=== PATIENT | male | born 1950 | race Caucasian/White ===

== ENCOUNTER → 2018-01-31 16:14 | Outpatient (CLI) | payer MEDICARE, OTHER, SELFPAY ==
--- NOTE | 2018-01-31 16:16 | DI.US.S_ITS ---
PROCEDURE: US SCROTUM INDICATIONS: Swollen L testicle x 2 weeks TECHNIQUE: Real-time scanning was performed of the scrotum and testicles, with image documentation. Color and pulse Doppler interrogation was performed of both testicles. COMPARISON: None. FINDINGS: Right: Testicle is normal in size at 4.3 x 2.6 x 3.0 cm, and homogenous in echotexture. Epididymis is normal in overall size and morphology. 1.1 cm epididymal cyst. Small hydrocele.. Overlying scrotal skin is normal in thickness. Left: Testicle is normal in size at 5.6 x 3.2 x 3.4 cm, and homogeneous in echotexture. 4 mm tunica albuginea cyst noted. Epididymis is not well-seen.. Large hydrocele. Overlying scrotal skin is normal in thickness. Doppler: Color and pulse Doppler demonstrate normal and symmetric arterial flow in both testicles. IMPRESSION: 1. Left tunica albuginea cyst noted otherwise normal testicles. 2. Large left and small right hydroceles. 3. Small right epididymal cyst. Dictated by: George REDDING Interpreted: Shant King MD on 02/01/2018 at 8:50 Approved by: Gee King M.D. on 02/01/2018 at 16:37
== END ==
PROVIDERS: Family Provider Family Medicine; PCP Family Medicine; Visit Provider Family Medicine
DX: N43.3 Hydrocele, unspecified (principal); N50.3 Cyst of epididymis; N44.1 Cyst of tunica albuginea testis; N50.89 Other specified disorders of the male genital organs
CPT/HCPCS: 76870

== ENCOUNTER → 2018-02-21 10:48 | Outpatient (CLI) | payer MEDICARE, OTHER, SELFPAY | PROVIDERS: Family Provider Family Medicine; PCP Family Medicine; Visit Provider Internal Medicine | DX: M21.371 Foot drop, right foot (principal); R20.0 Anesthesia of skin | CPT/HCPCS: 95886; 95912 ==

== ENCOUNTER → 2018-02-28 07:24 | Outpatient (CLI) | payer MEDICARE, OTHER, SELFPAY ==
--- NOTE | 2018-02-28 07:26 | DI.MRI.S_ITS ---
PROCEDURE: MR LUMBAR SPINE WO CON INDICATIONS: Right hip, buttock and leg radicular pain with abnormal NCS/EMG post lifting injury TECHNIQUE: Noncontrast sagittal T1 spin echo and T2 fast echo, sagittal STIR, axial T1 and T2 fast spin echo through the lumbar spine. In cases with scoliosis, additional coronal T2 fast spin echo may be performed. COMPARISON: [facility], RG, XR L-SPINE 4-6V, 05/26/2005, 12:07. FINDINGS: Image quality: There are motion artifacts. Alignment and Curvature: There is grade 1 anterolisthesis of L5 over S1. Bone Marrow: Marrow is of normal overall signal. No acute vertebral body compression fractures. Spinal Cord: Conus medullaris terminates at the L1-L2 level. Visualized cord demonstrates normal signal and size. Paraspinous Soft Tissues: No paravertebral masses. L1-L2: Preserved disc height. Mild disc desiccation. There is mild posterior disc bulge. Mild bilateral facet arthropathy. The central canal is patent. No foraminal stenosis. L2-L3: Preserved disc height. Mild disc desiccation. There is broad posterior disc bulge. Mild bilateral facet arthropathy and hypertrophy of ligamentum flavum. The central canal is patent. No bilateral foraminal stenosis. L3-L4: Mild loss of disc height and moderate disc desiccation. There is broad posterior disc bulge. There is right posterior paramedian disc extrusion with an extruding disc fragment extending below the disc within the anterior spinal canal measuring 5 mm AP x 10 mm transverse x 19 mm cephalocaudal. The right lateral recess is severely narrowed. There is impingement of the right L4 nerve root. Mild bilateral facet arthropathy and hypertrophy of ligamentum flavum. The central canal is zxzetgzz-cd-jytovshf narrowed. Ggmo-ju-simgmffs subarticular foraminal stenosis bilaterally. L4-L5: Mild loss of disc height and moderate disc desiccation. There is diffuse posterior disc bulge and disc osteophyte complex. Superimposed posterior central annular tear is present. Severe bilateral facet arthropathy and moderate hypertrophy of ligamentum flavum. The central canal is fluwqgjv-xy-yasqmlrq narrowed. Moderate foraminal stenosis bilaterally. L5-S1: Preserved disc height. Moderate disc desiccation. There is diffuse posterior disc bulge and disc protrusion. Severe bilateral facet arthropathy. The central canal is mildly narrowed. Mild bilateral foraminal stenosis bilaterally. IMPRESSION: 1. Multilevel degenerative disc disease and facet arthropathy as described. 2. There is a right posterior paramedian extruding disc fragment at L3-L4, extending inferiorly occupying the anterior spinal canal causing severe narrowing of the right lateral recess and nerve root impingement. 3. Moderate to severe central canal stenosis at L3-L4 and L4-L5. 4. Multilevel foraminal stenoses as described. Dictated by: Chris Araujo M.D. on 02/28/2018 at 9:43 Transcribed by: SHIVA on 02/28/2018 at 9:58 Approved by: Chris Araujo M.D. on 02/28/2018 at 17:45
== END ==
PROVIDERS: Family Provider Family Medicine; PCP Family Medicine; Visit Provider Internal Medicine
DX: M51.16 Intervertebral disc disorders with radiculopathy, lumbar region (principal); M25.551 Pain in right hip; M48.061 Spinal stenosis, lumbar region without neurogenic claudication; M54.5 Low back pain; M21.371 Foot drop, right foot; R20.0 Anesthesia of skin
CPT/HCPCS: 72148

== ENCOUNTER → 2018-06-20 09:57 | Outpatient (CLI) | payer MEDICARE, OTHER, SELFPAY ==
[2018-06-20 10:41] LABS: Mean Corpuscular HGB Conc 33.4 % (30-36); Mean Corpuscular Hemoglobin 27.4 PG (26-34); Mean Corpuscular Volume 81.9 fL (80-100); Platelet Count 200 X10^3/uL (150-400); Red Blood Cell Count 5.12 X10^6/uL (4.5-5.9); Red Cell Distribution Width 15.2 % (11.6-14.8); White Blood Cell Count 6.1 X10^3/uL (4.5-11.0)
[2018-06-20 10:50] LABS: Hemoglobin A1C% w Est Avg Glu 6.8 % (4.0-6.0)
[2018-06-20 11:10] LABS: Neutrophils Absolute Manual 3416 /uL (3000-5900); Total Cells Counted 100
[2018-06-20 11:11] LABS: RBC Morphology Normal Morphology
[2018-06-20 11:33] LABS: Thyroid Stimulating Hormone 3.64 uIU/mL (0.47-4.68)
[2018-06-20 11:48] LABS: Creatinine Urine Random 92.2 mg/dL
[2018-06-20 11:53] LABS: Microalbumi Creatinin Ratio Ur 21.6 ug/mg CR (<30)
[2018-06-20 12:54] LABS: Alanine Aminotransferase 39 IU/L (21-72); Albumin 4.8 g/dL (3.5-5.0); Albumin Globulin Ratio 1.4 (1.0-2.8); Alkaline Phosphatase 32 U/L (38-126); Aspartate Aminotransferase 41 IU/L (17-59); Bilirubin Total 0.5 mg/dL (0.2-1.3); Blood Urea Nitrogen 25 mg/dL (9-20); Calcium 9.8 mg/dL (8.4-10.2); Carbon Dioxide 24 mmol/L (22-32); Chloride 102 mmol/L (98-107); Cholesterol 106 mg/dL (140-199); Estimated Glomerular Filt Rate > 60.0 mL/min (>60); Globulin 3.4 g/dL (1.7-4.1); Glucose 144 mg/dL (80-110); HDL Cholesterol 26 mg/dL (40-60); HEMOLYSIS < 15 (0-50); LDL Cholesterol Calculated 43 mg/dL (<100); Potassium 4.6 mmol/L (3.4-5.1); Sodium 142 mmol/L (137-145); Total Protein 8.2 g/dL (6.3-8.2); Triglycerides 186 mg/dL (35-150)
[2018-06-20 13:18] LABS: Prostate Specific Antigen Scrn 0.074 ng/mL (0.1-4.0)
== END ==
PROVIDERS: Family Provider Internal Medicine Cardiovascular Disease; PCP Family Medicine; Visit Provider Family Medicine
DX: D56.3 Thalassemia minor (principal); E11.610 Type 2 diabetes mellitus with diabetic neuropathic arthropathy; E78.5 Hyperlipidemia, unspecified; I25.10 Atherosclerotic heart disease of native coronary artery without angina pectoris
CPT/HCPCS: 36415; 80053; 80061; 82043; 82570; 83036; 84443; 85025; G0103

== ENCOUNTER → 2018-08-21 07:45 | Outpatient (CLI) | payer MEDICARE, OTHER, SELFPAY ==
--- NOTE | 2018-08-21 | DI.MRI.S_ITS ---
PROCEDURE: MR LUMBAR SPINE WO CON INDICATIONS: Intervertebral disc disorders with radiculopathy TECHNIQUE: Noncontrast sagittal T1 spin echo and T2 fast echo, sagittal STIR, axial T1 and T2 fast spin echo through the lumbar spine. In cases with scoliosis, additional coronal T2 fast spin echo may be performed. COMPARISON: [facility], MR, MR LUMBAR SPINE WO CON, 02/28/2018, 7:40. FINDINGS: Image quality: Excellent. Alignment and Curvature: There is normal bony alignment. Bone Marrow: Marrow is of normal overall signal. No acute vertebral body compression fractures. Spinal Cord: Conus medullaris terminates at the T12-L1 level. Visualized cord demonstrates normal signal and size. Paraspinous Soft Tissues: No paravertebral masses. L1-L2: Mild bilateral facet arthrosis is seen, no significant central canal stenosis or neuroforaminal narrowing. L2-L3: Broad-based disc bulge and bilateral facet arthrosis is seen with mild hypertrophy of ligamentum flavum. There is mild central canal stenosis, no significant neuroforaminal narrowing. L3-L4: Robbie is a small chip at the bilateral facet arthrosis with hypertrophy of ligamentum flavum is seen. Previously noted extruded right paracentral disc herniation is no longer present, suggestive of interval surgical resection. Mild to moderate central canal stenosis and mild right worse than left bilateral neuroforaminal narrowing is seen on current study. Bulging disc likely contacting the bilateral exiting L3 nerve roots. L4-L5: There is broad-based disc bulge and bilateral facet arthrosis with hypertrophy of ligamentum flavum causing moderate to severe central canal stenosis and moderate bilateral neuroforaminal narrowing. Bulging disc likely contacting the bilateral L4 and L5 nerve roots. L5-S1: There is diffuse disc bulge and bilateral facet arthrosis with hypertrophy of ligamentum flavum. Mild central canal stenosis is seen and mild bilateral neuroforaminal narrowing. IMPRESSION: 1. Previously described extruded right disc fragment at L3-4 level is no longer present suggestive of interval resection. 2. Degenerative disc bulge and bilateral facet arthrosis at L2-3 through L5-S1 levels causing adpp-oe-vzjrfjzs central canal stenosis and bilateral neuroforaminal narrowing most prominent at L4-5 level as described above. 3. No marrow edema. No acute compression fracture or traumatic spondylolisthesis. Dictated by: Arpit Esquivel M.D. on 08/21/2018 at 9:04 Approved by: Arpit Esquivel M.D. on 08/21/2018 at 9:10
== END ==
PROVIDERS: Family Provider Internal Medicine Cardiovascular Disease; PCP Family Medicine; Visit Provider Neurological Surgery
DX: M51.16 Intervertebral disc disorders with radiculopathy, lumbar region (principal); M51.17 Intervertebral disc disorders with radiculopathy, lumbosacral region; M48.061 Spinal stenosis, lumbar region without neurogenic claudication; M48.07 Spinal stenosis, lumbosacral region; M47.26 Other spondylosis with radiculopathy, lumbar region; M47.27 Other spondylosis with radiculopathy, lumbosacral region
CPT/HCPCS: 72148

== ENCOUNTER → 2019-06-30 10:42 | Outpatient (CLI) | payer MEDICARE, OTHER, SELFPAY ==
[2019-06-30 11:59] LABS: Add Manual Diff / Slide Review NO; Basophils Absolute Auto 100 /uL (0-100); Basophils Percent Auto 0.9 % (0-2); Eosinophils Absolute Auto 200 /uL (0-450); Eosinophils Percent Auto 2.8 % (2-4); Hematocrit 42.4 % (41-53); Hemoglobin 14.4 g/dL (13.5-17.5); Lymphocytes Absolute Auto 1900 /uL (1100-4500); Lymphocytes Percent Auto 33.4 % (25-40); Mean Corpuscular Hemoglobin 27.8 PG (26-34); Mean Corpuscular Volume 81.6 fL (80-100); Monocytes Absolute Auto 400 /uL (0-900); Monocytes Percent Auto 7.8 % (3-14); Neutrophils Absolute Auto 3100 /uL (1500-7000); Neutrophils Percent Auto 55.1 % (50-75); Platelet Count 190 X10^3/uL (150-400); Red Blood Cell Count 5.19 X10^6/uL (4.5-5.9); Red Cell Distribution Width 15.2 % (11.6-14.8); White Blood Cell Count 5.6 X10^3/uL (4.5-11.0)
[2019-06-30 12:13] LABS: Alanine Aminotransferase 41 IU/L (<50); Albumin 4.8 g/dL (3.5-5.0); Albumin Globulin Ratio 1.4 (1.0-2.8); Alkaline Phosphatase 28 U/L (38-126); Aspartate Aminotransferase 44 IU/L (17-59); Bilirubin Total 0.6 mg/dL (0.2-1.3); Blood Urea Nitrogen 23 mg/dL (9-20); Calcium 9.9 mg/dL (8.4-10.2); Carbon Dioxide 25 mmol/L (22-32); Chloride 102 mmol/L (98-107); Cholesterol 154 mg/dL (140-199); Estimated Glomerular Filt Rate > 60.0 mL/min (>60); Globulin 3.4 g/dL (1.7-4.1); Glucose 147 mg/dL (80-110); HDL Cholesterol 30 mg/dL (40-60); HEMOLYSIS < 15 (0-50); LDL Cholesterol Calculated 73 mg/dL (<100); Potassium 4.6 mmol/L (3.4-5.1); Sodium 137 mmol/L (137-145); Total Protein 8.2 g/dL (6.3-8.2); Triglycerides 256 mg/dL (35-150)
[2019-06-30 12:43] LABS: Hemoglobin A1C% w Est Avg Glu 7.6 % (4.0-6.0)
[2019-06-30 16:16] LABS: Creatinine Urine Random 91.9 mg/dL
[2019-06-30 16:20] LABS: Microalbumi Creatinin Ratio Ur 21.7 ug/mg CR (<30)
== END ==
PROVIDERS: Family Provider Internal Medicine Cardiovascular Disease; PCP Family Medicine; Visit Provider Family Medicine
DX: E11.610 Type 2 diabetes mellitus with diabetic neuropathic arthropathy (principal); E78.5 Hyperlipidemia, unspecified; I25.10 Atherosclerotic heart disease of native coronary artery without angina pectoris
CPT/HCPCS: 36415; 80053; 80061; 82043; 82570; 83036; 84443; 85025

== ENCOUNTER → 2019-08-17 12:17 | Outpatient (CLI) | payer MEDICARE, OTHER, SELFPAY | PROVIDERS: Family Provider Internal Medicine Cardiovascular Disease; PCP Family Medicine; Visit Provider Physician Assistant | DX: L03.115 Cellulitis of right lower limb (principal) | CPT/HCPCS: 87070; 87077; 87147; 87186; 87205 ==

== ENCOUNTER → 2019-09-16 10:03 | Outpatient (CLI) | payer MEDICARE, OTHER, SELFPAY | PROVIDERS: PCP Family Medicine; Visit Provider Family Medicine | DX: E11.9 Type 2 diabetes mellitus without complications (principal) | CPT/HCPCS: G0108 ==

== ENCOUNTER 2019-09-23 07:21 | Day surgery (SDC) | payer MEDICARE, OTHER, SELFPAY ==
[2019-09-23] VITALS (9 sets, daily range): BP systolic 103–141; BP diastolic 61–74; PULSE 48–71; RESP 10–16; TEMP 35.9–36.5; O2SAT 97–100; BMI 29.0
[2019-09-23] MEDS: PROPARACAINE 0.5% OPHTH SOL 2 DROPS EYE-OP (08:30)
[2019-09-23] MEDS: CATARACT EYE COMPOUND (10 DROPS/SYRINGE) 3 DROPS EYE-OP (08:36)
--- NOTE | 2019-09-23 09:06 | PM.PREOP ---
Pre-operative Note Interval Note History & Physical reviewed/Exam performed by Physician: No Changes to H&P: No
--- NOTE | 2019-09-23 09:06 | PM.OP.1 ---
Operative Date/Time/Diagnoses Pre-op diagnosis: Nuclear Cataract Left eye Post-op diagnosis: same Procedure & Clinicians Same procedure as scheduled: Yes Surgeon: Shon Rodgers Anesthesia Type: MAC +/- and Sedation Operative Notes Procedure in detail: Patient brought to the operating suite. Tetracaine drops placed in the left eye. Marking instrument was used to susan vertical and horizontal meridians. Patient was prepped and draped in sterile manner. Wire lid speculum was placed in the eye. Betadine drops were placed on the eye. This was irrigated. Marking instrument was used to susan 90 degree meridian. Lidocaine jelly was placed on the eye. A paracentesis port was created with a side-port blade. 0.1 mL 1% preservative free lidocaine was injected into the anterior chamber. The anterior chamber was deepened with viscoelastic. 2.6 mm keratome was used to create a temporal clear corneal incision. Cystotome and Utrata forceps were used to create continuous tear capsulorrhexis. Balanced salt solution was used to hydro dissect the nucleus. The phacoemulsification handpiece was inserted and the nucleus was removed using the stop and chop technique. The irrigation aspiration handpiece was inserted and the remaining cortex was removed. Anterior chamber was deepened with viscoelastic. An Brand [id number] intraocular lens with a power of 15.5 was injected into the capsular bag. Irrigation aspiration handpiece was inserted and the remaining viscoelastic was removed. Lens was rotated to the 90 degree meridian. Incision was hydrated with balanced salt solution and found to be leak free with pressure with Weck-Thais sponges. 0.1 mL Vigamox injected anterior chamber. 0.3 mL Kenalog 10 mg was injected subconjunctivally. Lid speculum was removed. The patient left the operating room in excellent condition. Complications: none Post-operative Condition: stable Disposition: same day surgery
--- NOTE | 2019-09-23 09:11 | SUR.OPER ---
Supine on eye stretcher, head on extension cradle secured with tape. Arms tucked at sides with blanket. Pillow under knees.
[2019-09-23] MEDS: MOXIFLOXACIN INJ 5 MG/ML VIAL EYE-OP (09:30)
[2019-09-23] MEDS: LIDOCAINE JELLY 2% 5 ML 1 APPLIC TOP (09:30)
[2019-09-23] MEDS: CHONDROIDTIN/SOD HYALURONATE 1.05 ML SYRINGE INTRAOCULA (09:30)
[2019-09-23] MEDS: TETRACAINE 0.5% OPHTH DROPS 4 ML 2 DROPS EYE-OP (09:31)
[2019-09-23] MEDS: PHENYLEPHRINE/LIDOCAINE VIAL (OR) 0.2 ML EYE-OP (09:31)
[2019-09-23] MEDS: TRIAMCINOLONE 50 MG/5 ML VIAL INJ (09:31)
[2019-09-23] MEDS: BALANCED SALT IRRIG SOLN NO.2 500 ML, EPINEPHrine 1 MG IRR (09:31)
[2019-09-23] MEDS: ePHEDrine 50 MG/5 ML SYRINGE 20 MG IV (10:00)
[2019-09-23] MEDS: LACTATED RINGERS 1,000 ML 42 ML IV (10:00)
--- NOTE | 2019-09-23 10:23 | SUR.PHASEII ---
Patient arrived from OR drowsy but awake. Denied pain. VS stable. Coffee requested and provided. IV discontinued. Spouse by patient's side. At approximately 0955 patient c/o nausea. Was noted to be pale and sagging in the wheelchair. HR 28, pulse thready. Unable to obtain BP. Dr. Angel was in PACU and came immediately to assist. Patient was transferred to a stretcher and placed on the heart monitor, pacer pads in place. New IV was placed in Rt hand by Bel, with LR infusing. 20mg Ephedrine was administered IV by Dr. Angel. BP and heart rate increased and patient quickly stated he was feeling better. CBG 145. VS stabilized and patient continues to be monitored. Patient remained conscious during the event. Patient's spouse notified patient's senior qa automation engineer office by phone.
--- NOTE | 2019-09-23 11:23 | SUR.PHASEII ---
[id number] Dr. Rose came to evaluate patient. Discussed patient status. Ok for patient to discharge per MD.
--- NOTE | 2019-09-23 11:26 | SUR.PHASEII ---
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
== END 2019-09-23 11:10 | disposition home or self-care (01) ==
PROVIDERS: PCP Family Medicine; Referring Provider Ophthalmology; Visit Provider Ophthalmology
PROC: (CPT 66984; principal; 2019-09-23 09:15)
DX: H25.12 Age-related nuclear cataract, left eye (principal)
CPT/HCPCS: 66984; J0171; J2250; J3010; J3301; V2787

== ENCOUNTER → 2019-10-03 09:54 | Outpatient (CLI) | payer MEDICARE, OTHER, SELFPAY ==
--- NOTE | 2019-10-03 12:07 | DIET.PN ---
Diabetes: Healthy Eating 1 Intervention: ? Discussed pathophysiology of diabetes and impact of nutrition/diet on blood sugar control.? Discussed fed versus non-fed state.?? ? Reviewed importance of Balance, Variety, and Moderation. ? Discussed the effect of carbohydrates/protein/fat on blood sugar control.? ? Stressed importance of consistent carbohydrate intake at each meal and provided instructions for recommended servings/portions of carbohydrates/protein per meal. Provided educational material. ? Reviewed carbohydrate counting and measuring carbohydrate content via serving sizes and reading nutrition labels.? Provided handouts.?? ? Discussed the difference between simple versus complex carbohydrates and the effect of fiber on blood sugar control.? Discussed various methods to increase fiber content in diet. ? Discussed the plate method for creating more carbohydrate conscious balanced meals. ? Stressed importance of meal timing and not going >4-5 hours between meals. Encouraged adding protein to evening snack to support glucose control overnight. ? Discussed importance of making dietary habits part of lifestyle change.
== END ==
PROVIDERS: PCP Family Medicine; Referring Provider Family Medicine; Visit Provider Family Medicine
DX: E11.9 Type 2 diabetes mellitus without complications (principal); Z71.3 Dietary counseling and surveillance
CPT/HCPCS: G0109

== ENCOUNTER → 2019-10-07 14:29 | Outpatient (CLI) | payer MEDICARE, OTHER, SELFPAY ==
--- NOTE | 2019-10-07 16:08 | DIET.PN ---
Diabetes: Healthy Eating 2 Intervention: Fats effects on glucose, weight, heart disease, cholesterol Sat Vs Unsat Protein- animal and plant based options Low, med, high fat meats Sugar substitutes Sodium Health claims Grocery shopping guidelines Eating away from home Alcohol Sick day guidelines
== END ==
PROVIDERS: PCP Family Medicine; Referring Provider Family Medicine; Visit Provider Family Medicine
DX: E11.9 Type 2 diabetes mellitus without complications (principal); Z71.3 Dietary counseling and surveillance
CPT/HCPCS: G0109

== ENCOUNTER → 2019-10-17 09:49 | Outpatient (CLI) | payer MEDICARE, OTHER, SELFPAY ==
--- NOTE | 2019-10-17 12:13 | DIET.PN ---
Diabetes Physiology: Intervention 1. Diabetes physiology 2. Detecting and treatment of acute and chronic complications 3. Diagnosis of and difference in types of diabetes 4. Self-monitoring and pattern management a. Demonstrate glucometer and control testing b. Explain BG results and action to take when out of range. 5. Foot , eye, dental care 6. Medications a. Oral medication classification b. Injectable c. Insulin i. Injection protocol ii. Other delivery methods
== END ==
PROVIDERS: PCP Family Medicine; Referring Provider Family Medicine; Visit Provider Family Medicine
DX: E11.9 Type 2 diabetes mellitus without complications (principal); Z71.3 Dietary counseling and surveillance
CPT/HCPCS: G0109

== ENCOUNTER → 2019-10-21 14:19 | Outpatient (CLI) | payer MEDICARE, OTHER, SELFPAY ==
--- NOTE | 2019-10-21 16:50 | DIET.PN ---
Exercise/Lifestyle change: 1. Importance of exercise 2. FITT (frequency, intensity, time, type) 3. Strength training tips and guidelines 4. Glucose monitoring/ranges before and after 5. Proper foot attire 6. Developing strategies for behavior change 7. SMART Goal Setting 8. Home exercise routine demonstration (as a class)
== END ==
PROVIDERS: PCP Family Medicine; Referring Provider Family Medicine; Visit Provider Family Medicine
DX: E11.9 Type 2 diabetes mellitus without complications (principal); Z71.3 Dietary counseling and surveillance
CPT/HCPCS: G0109

== ENCOUNTER → 2019-10-30 09:55 | Outpatient (CLI) | payer MEDICARE, OTHER, SELFPAY ==
[2019-10-30 10:01] VITALS: BMI 29.2
--- NOTE | 2019-10-30 12:24 | DIET.PN ---
DIABETES Nutrition Initial Assessment:? ASSESS:?? Mr. Reaves is a 69 yom??referred for type 2 diabetes seen as part of DSME program. He has been monitoring is BG 2-3 x/day. He is happy to report BG trending down and he is able to recognize the reasons for elevated glucose. He has kept a food record every day since our initial appointment as he feels this helps him stay on track. He is currently taking his glipizide as needed and will often take 30 min prior to consuming a high carb meal. He has had several episodes of hypoglycemia which we discussed in detail. He has been having fainting episodes and is seeing a continuous churn buttermaker with plans to have a pacemaker put in November 11. ??? LABS: Per pt report:? A1c: 7.6 B-170 (>200 x5) ? MEDS:?? metf 1000 mg BID; glipizide 5mg PRN ? Weight: 220 (down 5 #) Ht:? 73 in ? Exercise:? none at this time r/t recent cataract surgery and heart problems. Plans to resume following pacemaker placement. NUTRITION DX 1. Altered Nutrition related labs related to impaired glucose metabolism, lack of previous exposure to accurate nutrition information as evidenced by pt report, dx of diabetes, previous diet high in refined carbohydrates.? INTERVENTION(s): 1. Reviewed pathophysiology of diabetes and impact of nutrition/diet on blood sugar control.? Discussed fed versus non-fed state.?? 2. Discussed the effect of carbohydrates/protein/fat on blood sugar control.? Stressed importance of consistent carbohydrate intake at each meal and provided instructions for recommended servings/portions of carbohydrates/protein per meal. Provided pt with educational material. 3. Reviewed carbohydrate counting and measuring carbohydrate content via serving sizes and reading nutrition labels.? Provided handouts.?? 4. Discussed the difference between simple versus complex carbohydrates and the effect of fiber on blood sugar control.? Discussed various methods to increase fiber content in diet. 5. Stressed importance of meal timing and not going >4-5 hours between meals. Encouraged adding protein to evening snack to support glucose control overnight. Patient agreeable. 6. Discussed healthy weight loss goals of 1-2lbs per week through diet and exercise.? 7. Recommend monitoring fasting and alternating 2 hr PP mealtime glucose. 8. Discussed in detail medication management. Will further discuss at follow up. Note: Concerned with patients use of glipizide. He often take glipizide before each meal and will often skip days all together. Will discuss further at F/u and review with provider. MONITOR/EVALUATE: Anticipate good compliance.? Follow up scheduled in 6 weeks to review new labs.
== END ==
PROVIDERS: PCP Family Medicine; Referring Provider Family Medicine; Visit Provider Family Medicine
DX: E11.9 Type 2 diabetes mellitus without complications (principal); Z71.3 Dietary counseling and surveillance
CPT/HCPCS: G0108

== ENCOUNTER → 2019-12-03 13:20 | Outpatient (CLI) | payer MEDICARE, OTHER, SELFPAY ==
[2019-12-03 13:46] LABS: Hemoglobin A1C% w Est Avg Glu 7.2 % (4.0-6.0)
== END ==
PROVIDERS: PCP Family Medicine; Referring Provider Family Medicine; Visit Provider Family Medicine
DX: E11.610 Type 2 diabetes mellitus with diabetic neuropathic arthropathy (principal)
CPT/HCPCS: 36415; 83036

== ENCOUNTER → 2020-02-18 11:42 | Outpatient (CLI) | payer MEDICARE, OTHER, SELFPAY ==
--- NOTE | 2020-02-18 11:43 | DI.US.S_ITS ---
PROCEDURE: US PERIPH VENOUS LOW EXTREM RT INDICATIONS: RIGHT LOWER EXTREMITY SWELLING, ACUTE TECHNIQUE: Real-time imaging, as well as color and pulse Doppler interrogation, were performed of the lower extremity deep veins from the inguinal ligament to the popliteal fossa. COMPARISON: None. FINDINGS: The common femoral, femoral and popliteal veins are normally compressible, and free of intraluminal thrombus. Color and pulse Doppler demonstrate normal phasic intraluminal flow. There is normal augmentation response to distal compression maneuver. IMPRESSION: No deep venous thrombosis identified within the right lower extremity. Dictated by: George Shannon Pierre Interpreted: Katia Islas MD on 02/18/2020 at 13:19 Approved by: Katia Islas M.D. on 02/18/2020 at 14:40
== END ==
PROVIDERS: PCP Family Medicine; Referring Provider Family Medicine; Visit Provider Family Medicine
DX: M79.89 Other specified soft tissue disorders (principal)
CPT/HCPCS: 93971

== ENCOUNTER → 2020-04-27 09:57 | Outpatient (CLI) | payer MEDICARE, OTHER, SELFPAY ==
[2020-04-27 11:27] LABS: Add Manual Diff / Slide Review NO; Basophils Absolute Auto 100 /uL (0-100); Basophils Percent Auto 0.9 % (0-2); Eosinophils Absolute Auto 300 /uL (0-450); Eosinophils Percent Auto 4.5 % (2-4); Hematocrit 41.3 % (41-53); Hemoglobin 14.1 g/dL (13.5-17.5); Lymphocytes Absolute Auto 2000 /uL (1100-4500); Lymphocytes Percent Auto 33.4 % (25-40); Mean Corpuscular Hemoglobin 27.9 PG (26-34); Mean Corpuscular Volume 81.9 fL (80-100); Monocytes Absolute Auto 400 /uL (0-900); Monocytes Percent Auto 7.5 % (3-14); Neutrophils Absolute Auto 3200 /uL (1500-7000); Neutrophils Percent Auto 53.7 % (50-75); Platelet Count 171 X10^3/uL (150-400); Red Blood Cell Count 5.05 X10^6/uL (4.5-5.9); Red Cell Distribution Width 14.6 % (11.6-14.8); White Blood Cell Count 5.9 X10^3/uL (4.5-11.0)
[2020-04-27 11:28] LABS: Hemoglobin A1C% w Est Avg Glu 7.5 % (4.0-6.0)
[2020-04-27 12:09] LABS: Alanine Aminotransferase 30 IU/L (<50); Albumin 4.4 g/dL (3.5-5.0); Albumin Globulin Ratio 1.5 (1.0-2.8); Alkaline Phosphatase 28 U/L (38-126); Aspartate Aminotransferase 28 IU/L (17-59); BUN Creatinine Ratio 24.7 (6-22); Bilirubin Total 0.5 mg/dL (0.2-1.3); Blood Urea Nitrogen 22 mg/dL (9-20); Calcium 9.8 mg/dL (8.4-10.2); Carbon Dioxide 27 mmol/L (22-32); Chloride 104 mmol/L (98-107); Cholesterol 129 mg/dL (140-199); Estimated Glomerular Filt Rate > 60.0 mL/min (>60); Glucose 189 mg/dL (80-110); HDL Cholesterol 32 mg/dL (40-60); HEMOLYSIS < 15 (0-50); LDL Cholesterol Calculated 45 mg/dL (<100); Potassium 5.1 mmol/L (3.4-5.1); Sodium 136 mmol/L (137-145); Total Protein 7.4 g/dL (6.3-8.2); Triglycerides 259 mg/dL (35-150)
[2020-04-27 12:43] LABS: Microalbumin Urine Random 1.3 mg/dL (0-1.6)
[2020-04-27 18:21] LABS: Microalbumi Creatinin Ratio Ur 15.8 ug/mg CR (<30)
== END ==
PROVIDERS: PCP Family Medicine; Referring Provider Family Medicine; Visit Provider Family Medicine
DX: E11.610 Type 2 diabetes mellitus with diabetic neuropathic arthropathy (principal); E78.5 Hyperlipidemia, unspecified; I25.10 Atherosclerotic heart disease of native coronary artery without angina pectoris; I48.91 Unspecified atrial fibrillation; Z95.5 Presence of coronary angioplasty implant and graft
CPT/HCPCS: 36415; 80053; 80061; 82043; 82570; 83036; 85025

== ENCOUNTER → 2020-05-19 10:26 | Outpatient (CLI) | payer MEDICARE, OTHER, SELFPAY ==
--- NOTE | 2020-05-19 11:40 | DIET.PN ---
Diabetes Follow Up Assess: Met for Mr. Reaves follow up visit to re-check labs. Since October he has been walking every day and keeping track of his food record and glucose readings. He continues to take his glipizide as needed 30 min prior to a high carb meal. He has not had any hypoglycemic events since our last visit. He had a pacemaker placed in October which has helped with dizziness. Labs: A1c: 7.5 Meds: metf: 1000mg BID; glipizide 5mg PRN Dietary changes: cut out breads and most sweets. Ht: 67in Wt: 213 lb (12lb weight loss) BMI: 28.1 Nutrition DX: Altered nutrition related laboratory values related to impaired glucose metabolism, lack of previous exposure to nutrition information as evidenced by pt report, diagnosis of diabetes, previous diet high in refined carbohydrates. Intervention: 1. Completed follow up assessment. Reviewed barriers to care. 2. Reviewed new labs and importance of continued BG monitoring. 3. Reviewed SMART goals and made modifications where appropriate including wt management, activity, and A1c goals. 4. Discussed plan for ongoing support. Provided information for continued support and success. Note: Pt discussed possibility of beginning Jardiance is A1c not <7.0 at next visit. SMART goals: 1. Pt will continue to walk daily and keep a food/glucose log to continue to lower A1c to goal of <7.0. Monitor/Evaluate: Pt will follow up in 3 mo to discuss new labs and barriers to care.
== END ==
PROVIDERS: PCP Family Medicine; Referring Provider Family Medicine; Visit Provider Family Medicine
DX: E11.9 Type 2 diabetes mellitus without complications (principal); Z79.84 Long term (current) use of oral hypoglycemic drugs; Z71.3 Dietary counseling and surveillance
CPT/HCPCS: G0109

== ENCOUNTER → 2020-07-31 10:07 | Outpatient (CLI) | payer MEDICARE, OTHER, SELFPAY ==
[2020-07-31 12:04] LABS: Hemoglobin A1C% w Est Avg Glu 6.9 % (4.0-6.0)
== END ==
PROVIDERS: PCP Family Medicine; Referring Provider Family Medicine; Visit Provider Family Medicine
DX: E11.610 Type 2 diabetes mellitus with diabetic neuropathic arthropathy (principal)
CPT/HCPCS: 36415; 83036

== ENCOUNTER → 2020-09-08 12:46 | Outpatient (CLI) | payer MEDICARE, OTHER, SELFPAY ==
--- NOTE | 2020-09-08 13:54 | DIET.PN ---
Diabetes Follow Up Assess: Mr Reaves is in for 1 yr follow up visit. He has kept a daily food record, glucose log, and medication dosing for the last year. He has cut out breads and pastas and continues to take glipizide as needed before meals. He was walking daily while living [place], but has not been able to walk much since his return due to neuropathy. Labs: A1c: 6.9 Meds: metf 1000 mg BID; glipizide 5mg PRN Dietary changes: cut out most starches and sweets Ht: 73in Wt: 213lb BMI: 28.1 Nutrition DX: Altered nutrition related laboratory values related to impaired glucose metabolism, lack of previous exposure to nutrition information as evidenced by pt report, diagnosis of diabetes, previous diet high in refined carbohydrates. Intervention: 1. Completed follow up assessment. Reviewed barriers to care. 2. Reviewed new labs and importance of continued BG monitoring. 3. Reviewed SMART goals and made modifications where appropriate including wt management, activity, and A1c goals. 4. Discussed plan for ongoing support. Provided information for continued support and success. Monitor/Evaluate: Pt will follow up in 3 mo to discuss new labs and barriers to care.
== END ==
PROVIDERS: PCP Family Medicine; Referring Provider Family Medicine; Visit Provider Family Medicine
DX: E11.9 Type 2 diabetes mellitus without complications (principal); Z79.4 Long term (current) use of insulin
CPT/HCPCS: G0109

== ENCOUNTER → 2020-10-30 09:06 | Outpatient (CLI) | payer MEDICARE, OTHER, SELFPAY ==
[2020-10-30 11:10] LABS: COVID19 -Nasal RAPID Negative (Negative)
== END ==
PROVIDERS: PCP Family Medicine; Visit Provider Nurse Practitioner
DX: Z20.822 Contact with and (suspected) exposure to COVID-19 (principal)
CPT/HCPCS: 87635; C9803

== ENCOUNTER 2020-11-02 07:01 | Day surgery (SDC) | payer MEDICARE, OTHER, SELFPAY ==
[2020-11-02] MEDS: PROPARACAINE 0.5% OPHTH SOL 2 DROPS EYE-OP (07:19)
[2020-11-02] MEDS: CATARACT EYE COMPOUND (10 DROPS/SYRINGE) 3 DROPS EYE-OP (07:19)
[2020-11-02 07:25] VITALS: BP 122/74; PULSE 80; RESP 16; TEMP 36.9; O2SAT 99; BMI 27.9
--- NOTE | 2020-11-02 08:00 | PM.PREOP ---
Pre-operative Note Interval Note History & Physical reviewed/Exam performed by Physician: Yes Changes to H&P: No
--- NOTE | 2020-11-02 08:00 | PM.OP.1 ---
Operative Date/Time/Diagnoses Pre-op diagnosis: Nuclear cataract right eye Procedure & Clinicians Procedure: Cataract Surgery Same procedure as scheduled: Yes Surgeon: Shon Rodgers Anesthesia Type: MAC +/- and Sedation Operative Notes Procedure in detail: Patient brought to the operating suite. Tetracaine drops placed in the right eye. The vertical and horizontal axis was marked with the marking instrument. Patient was prepped and draped in sterile manner. Wire lid speculum was placed in the eye. Betadine drops were placed on the eye. This was irrigated. Lidocaine jelly was placed on the eye. A paracentesis port was created with a side-port blade. 0.1 mL 1% preservative free lidocaine was injected into the anterior chamber. The anterior chamber was deepened with viscoelastic. 2.6 mm keratome was used to create a temporal clear corneal incision. Cystotome and Utrata forceps were used to create continuous tear capsulorrhexis. Balanced salt solution was used to hydro dissect the nucleus. The phacoemulsification handpiece was inserted and the nucleus was removed using the stop and chop technique. The irrigation aspiration handpiece was inserted and the remaining cortex was removed. Anterior chamber was deepened with viscoelastic. An Brand [id number] intraocular lens with a power of 16.5 was injected into the capsular bag. Irrigation aspiration handpiece was inserted and the remaining viscoelastic was removed. Then lens was rotated to the 90 degree meridian. Incision was hydrated with balanced salt solution and found to be leak free with pressure with Weck-Thais sponges. 0.1 mL Vigamox injected anterior chamber. 0.3 mL Kenalog 10 mg was injected subconjunctivally. Lid speculum was removed. The patient left the operating room in excellent condition. Complications: none Post-operative Condition: stable Disposition: same day surgery
[2020-11-02] MEDS: LIDOCAINE JELLY 2% 5 ML 1 APPLIC TOP (08:16)
[2020-11-02] MEDS: CHONDROIDTIN/SOD HYALURONATE 1.05 ML SYRINGE INTRAOCULA (08:16)
[2020-11-02] MEDS: MOXIFLOXACIN INJ 5 MG/ML VIAL EYE-OP (08:16)
[2020-11-02] MEDS: TETRACAINE 0.5% OPHTH DROPS 4 ML 2 DROPS EYE-OP (08:17)
[2020-11-02] MEDS: TRIAMCINOLONE 50 MG/5 ML VIAL INJ (08:17)
[2020-11-02] MEDS: BALANCED SALT IRRIG SOLN NO.2 500 ML, EPINEPHrine 1 MG IRR (08:17)
[2020-11-02] MEDS: PHENYLEPHRINE/LIDOCAINE VIAL (OR) 0.2 ML EYE-OP (08:17)
[2020-11-02 08:30] VITALS: BP 114/73; PULSE 62; RESP 16; TEMP 36.4; O2SAT 97
== END 2020-11-02 08:43 | disposition home or self-care (01) ==
PROVIDERS: PCP Family Medicine; Referring Provider Family Medicine; Visit Provider Ophthalmology
PROC: (CPT 66984; principal; 2020-11-02 08:15)
DX: H25.11 Age-related nuclear cataract, right eye (principal); E11.9 Type 2 diabetes mellitus without complications; E78.00 Pure hypercholesterolemia, unspecified; I10 Essential (primary) hypertension; I51.9 Heart disease, unspecified; I48.91 Unspecified atrial fibrillation; Z95.0 Presence of cardiac pacemaker; Z79.84 Long term (current) use of oral hypoglycemic drugs; Z79.01 Long term (current) use of anticoagulants
CPT/HCPCS: 66984; J0171; J2250; J3010; J3301; V2788

== ENCOUNTER → 2020-12-26 15:26 | Outpatient (CLI) | payer MEDICARE, OTHER, SELFPAY | PROVIDERS: PCP Family Medicine; Visit Provider Student in an Organized Health Care Education/Training Program | DX: J34.0 Abscess, furuncle and carbuncle of nose (principal) | CPT/HCPCS: 87070; 87077; 87147; 87186 ==

== ENCOUNTER → 2021-01-03 09:37 | Outpatient (CLI) | payer MEDICARE, OTHER, SELFPAY ==
[2021-01-03 14:10] LABS: Hemoglobin A1C% w Est Avg Glu 7.1 % (4.0-6.0)
== END ==
PROVIDERS: PCP Family Medicine; Referring Provider Family Medicine; Visit Provider Family Medicine
DX: E11.610 Type 2 diabetes mellitus with diabetic neuropathic arthropathy (principal)
CPT/HCPCS: 36415; 83036

== ENCOUNTER → 2021-03-24 09:15 | Outpatient (CLI) | payer MEDICARE, OTHER, SELFPAY ==
[2021-03-24 10:55] LABS: COVID19 -Nasal RAPID Negative (Negative)
== END ==
PROVIDERS: PCP Family Medicine; Referring Provider Specialist; Visit Provider Specialist
DX: Z20.822 Contact with and (suspected) exposure to COVID-19 (principal)
CPT/HCPCS: 87635; C9803

== ENCOUNTER 2021-03-25 08:10 | Day surgery (SDC) | payer MEDICARE, OTHER, SELFPAY ==
[2021-03-25] MEDS: LACTATED RINGERS 1,000 ML 42 ML IV (08:28)
[2021-03-25 08:45] VITALS: BP 144/87; PULSE 68; RESP 14; TEMP 36.2; O2SAT 99; BMI 27.4
--- NOTE | 2021-03-25 09:06 | PM.HP.1 ---
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) Hyperlipidemia Hypertension Kidney stones (~2005) Measles Mumps Pacemaker Presence of stent in right coronary artery (~2006) Sleep apnea (1987) Thalassemia trait (1979) Surgical History Anesthesia History of nasal surgery History of rectal surgery (2011) S/P coronary artery stent placement (~2006) S/P coronary artery stent placement (2010) Status post right partial knee replacement (~2009) Family & Social History Family History Father Heart disease Hypertension Grandfather Heart disease Grandmother Stroke Mother Cancer Brother Hypertension Heart disease Stroke Sister Heart disease Breast cancer Social History: household members spouse lives independently Yes caregiver/support person No Tobacco & Substance use: Smoking Status Former smoker alcohol intake current alcohol intake frequency holiday/special occasion Substance Use Type does not use Meds Home Medications and Allergies Home Medications Medication Instructions Recorded Confirmed Type ricks flavor (bulk) 1 ea PO DAILY #0 02/08/11 03/25/21 History apixaban 5 mg tablet (Eliquis) 5 mg PO BID 07/19/18 03/25/21 History polyethylene glycol 3350 17 17 gram PO DAILY 02/18/20 03/01/21 History gram/dose oral powder (Miralax) sotalol 80 mg tablet 40 mg PO BID tab 05/05/20 03/25/21 History fenofibrate nanocrystallized 145 See Rx Instructions .ROUTE 08/04/20 03/01/21 Rx mg tablet .COMPLEX #90 tablet glipizide 5 mg tablet See Rx Instructions .ROUTE 08/04/20 03/25/21 Rx .COMPLEX #180 tablet lisinopril 5 mg tablet 5 mg PO DAILY #90 tab 08/04/20 03/25/21 Rx metformin 1,000 mg tablet See Rx Instructions .ROUTE 08/04/20 03/25/21 Rx .COMPLEX #180 tablet simvastatin 20 mg tablet See Rx Instructions .ROUTE 08/04/20 03/25/21 Rx .COMPLEX #90 tablet tadalafil 5 mg tablet 5 mg PO DAILY #30 tab 03/01/21 03/25/21 Rx Allergies Allergy/AdvReac Type Severity Reaction Status Date / Time Penicillins [PENICILLINS] Allergy Mild rash Verified 03/25/21 08:28 Review of Systems Review of Systems Narrative: Patient has a pacemaker. He is in AFib. No chest pain. No black or bloody bowel movements. No seizures or blackouts. Exam Vital Signs (past 8 hours): - 03/25/21 08:45 Temperature 97.2 F L Pulse Rate 68 Respiratory Rate 14 Blood Pressure 144/87 H Pulse Oximetry 99 Oxygen Delivery Method Room Air Narrative Exam Narrative: Pleasant cooperative patient no apparent distress. Lungs are clear to auscultation. No rales or rhonchi. Heart regular rate and rhythm no murmur gallop. Abdomen is soft nontender without mass. No obvious hernias. Patient is alert and oriented x3. Assessment & Plan Assessment and plan (1) Screening for colon cancer: Status: Acute Assessment & Plan narrative: The patient for a screening colonoscopy. I have discussed the procedure with them. Risks of bleeding, perforation which would necessitate major operation, failure to find remove all lesions, the potential tattoo were all discussed. All questions were answered. They wished to proceed.
--- NOTE | 2021-03-25 09:08 | PM.PREOP ---
Pre-operative Note COVID-19 COVID-19 status: Negative Result date/Date tested (Pos, Neg/Pending): 03/24/21 Interval Note History & Physical reviewed/Exam performed by Physician: Yes Changes to H&P: No ASA Class (for procedural sedation): III
[2021-03-25] MEDS: fentaNYL 250 MCG/5 ML INJ IV (09:39)
[2021-03-25] MEDS: MIDAZOLAM 5 MG/5 ML VIAL IV (09:41)
--- NOTE | 2021-03-25 09:58 | PM.OP.ENDO ---
Operative Date/Time/Diagnoses Time of procedure: 09:58 Pre-op diagnosis: Screening for colon cancer. Last exam over 10 years ago. Post-op diagnosis: same (Diverticulosis) Procedure & Clinicians Study performed: Colonoscopy Same procedure as scheduled: Yes Indications: Screening Surgeon: Topher Aguilera Procedure Notes SCOAP/Timeout: Performed Procedure in detail: The patient was placed in the left lateral decubitus position and underwent IV sedation directed by the surgeon consisting of fentanyl and Versed. Digital exam was unremarkable. I could not feel his prostate.. The scope was inserted and advanced through the rectum into the sigmoid, descending, transverse, and ascending colon. I noted diverticulosis principally in the sigmoid but occasionally elsewhere. His colon was quite redundant and floppy. Pressure was applied the patient was repositioned a stiffener inserted in order to make our way into the cecum.. The cecum was reached identified by the ileocecal valve and the appendiceal opening. The scope was gradually brought out. No Polyps were found. The scope ultimately was retroflexed in the rectum. The appearance was remarkable for internal hemorrhoids without ulceration.. The scope was removed and the patient tolerated the procedure well. The prep was adequate. Scope withdrawal time: 7-1/2 minutes Sedation minutes: 43 Findings: diverticulosis Specimen(s): none sent Complications: none Post-procedure Recommendations: Colonscopy in 10 years Follow up: as needed Disposition: PACU
[2021-03-25 10:01] VITALS: BP 130/78; PULSE 62; RESP 12; TEMP 36.3
[2021-03-25 10:11] VITALS: BP 133/87; PULSE 60; RESP 16; O2SAT 98
[2021-03-25 10:16] VITALS: BP 120/78; PULSE 60; RESP 16; TEMP 36.6; O2SAT 98
[2021-03-25 10:21] VITALS: BP 120/78; PULSE 60; RESP 16; TEMP 36.6; O2SAT 98
== END 2021-03-25 10:24 | disposition home or self-care (01) ==
PROVIDERS: PCP Family Medicine; Referring Provider Specialist; Visit Provider Specialist
PROC: 0DJD8ZZ Inspection of Lower Intestinal Tract, Via Natural or Artificial Opening Endoscopic (ICD-10-PCS; CPT 45378; principal; 2021-03-25 09:15)
DX: Z12.11 Encounter for screening for malignant neoplasm of colon (principal); K57.30 Diverticulosis of large intestine without perforation or abscess without bleeding; I10 Essential (primary) hypertension; E78.5 Hyperlipidemia, unspecified
CPT/HCPCS: G0121; 99152; 99153; J2250; J3010

== ENCOUNTER → 2021-05-02 13:48 | Outpatient (CLI) | payer MEDICARE, OTHER, SELFPAY ==
[2021-05-02 17:04] LABS: COVID19 -Nasal RAPID Negative (Negative)
== END ==
PROVIDERS: PCP Family Medicine; Visit Provider Nurse Practitioner Family
DX: Z20.822 Contact with and (suspected) exposure to COVID-19 (principal); R09.81 Nasal congestion
CPT/HCPCS: 87635

== ENCOUNTER → 2021-05-25 12:34 | Outpatient (CLI) | payer MEDICARE, OTHER, SELFPAY ==
[2021-05-25 13:48] LABS: BUN Creatinine Ratio 32.9 (6-22); Blood Urea Nitrogen 27 mg/dL (9-20); Calcium 10.2 mg/dL (8.4-10.2); Carbon Dioxide 24 mmol/L (22-32); Chloride 103 mmol/L (98-107); Estimated Glomerular Filt Rate > 60.0 mL/min (>60); Glucose 151 mg/dL (80-110); HEMOLYSIS < 15 (0-50); Potassium 4.9 mmol/L (3.4-5.1); Sodium 138 mmol/L (137-145)
== END ==
PROVIDERS: PCP Family Medicine; Referring Provider Nurse Practitioner; Visit Provider Nurse Practitioner
DX: I48.0 Paroxysmal atrial fibrillation (principal); Z51.81 Encounter for therapeutic drug level monitoring
CPT/HCPCS: 36415; 80048

== ENCOUNTER → 2021-05-26 10:18 | Outpatient (CLI) | payer MEDICARE, OTHER, SELFPAY ==
[2021-05-26 10:48] LABS: Hemoglobin A1C% w Est Avg Glu 7.3 % (4.0-6.0)
[2021-05-26 11:15] LABS: Alanine Aminotransferase 28 IU/L (<50); Albumin 4.7 g/dL (3.5-5.0); Albumin Globulin Ratio 1.5 (1.0-2.8); Alkaline Phosphatase 24 U/L (38-126); Aspartate Aminotransferase 28 IU/L (17-59); BUN Creatinine Ratio 31.3 (6-22); Bilirubin Total 0.4 mg/dL (0.2-1.3); Blood Urea Nitrogen 26 mg/dL (9-20); Calcium 10.3 mg/dL (8.4-10.2); Carbon Dioxide 28 mmol/L (22-32); Chloride 105 mmol/L (98-107); Cholesterol 152 mg/dL (140-199); Estimated Glomerular Filt Rate > 60.0 mL/min (>60); Globulin 3.1 g/dL (1.7-4.1); Glucose 149 mg/dL (80-110); HDL Cholesterol 36 mg/dL (40-60); HEMOLYSIS < 15 (0-50); LDL Cholesterol Calculated 52 mg/dL (<100); Potassium 5.2 mmol/L (3.4-5.1); Sodium 141 mmol/L (137-145); Total Protein 7.8 g/dL (6.3-8.2); Triglycerides 319 mg/dL (35-150)
[2021-05-26 11:50] LABS: Creatinine Urine Random 52.9 mg/dL
[2021-05-26 11:53] LABS: Microalbumi Creatinin Ratio Ur 15.1 ug/mg CR (<30); Microalbumin Urine Random 0.8 mg/dL (0-1.6)
== END ==
PROVIDERS: PCP Family Medicine; Referring Provider Family Medicine; Visit Provider Family Medicine
DX: E11.610 Type 2 diabetes mellitus with diabetic neuropathic arthropathy (principal)
CPT/HCPCS: 36415; 80053; 80061; 82043; 82570; 83036

== ENCOUNTER → 2021-09-06 11:16 | Outpatient (CLI) | payer MEDICARE, OTHER, SELFPAY ==
[2021-09-06 12:08] LABS: Hemoglobin A1C% w Est Avg Glu 7.4 % (4.0-6.0)
[2021-09-06 12:26] LABS: Alanine Aminotransferase 30 IU/L (<50); Albumin 4.3 g/dL (3.5-5.0); Albumin Globulin Ratio 1.4 (1.0-2.8); Alkaline Phosphatase 25 U/L (38-126); Aspartate Aminotransferase 30 IU/L (17-59); BUN Creatinine Ratio 23.1 (6-22); Bilirubin Total 0.6 mg/dL (0.2-1.3); Blood Urea Nitrogen 21 mg/dL (9-20); Carbon Dioxide 23 mmol/L (22-32); Chloride 105 mmol/L (98-107); Estimated Glomerular Filt Rate > 60.0 mL/min (>60); Glucose 189 mg/dL (80-110); HEMOLYSIS < 15 (0-50); Potassium 4.5 mmol/L (3.4-5.1); Sodium 139 mmol/L (137-145); Total Protein 7.3 g/dL (6.3-8.2)
== END ==
PROVIDERS: PCP Family Medicine; Referring Provider Family Medicine; Visit Provider Family Medicine
DX: E11.610 Type 2 diabetes mellitus with diabetic neuropathic arthropathy (principal)
CPT/HCPCS: 36415; 80053; 83036

== ENCOUNTER 2021-11-24 01:48 | Emergency (ER) | payer MEDICARE, OTHER, SELFPAY ==
[2021-11-24] VITALS (17 sets, daily range): BP systolic 110–148; BP diastolic 60–75; PULSE 70–88; RESP 13–22; TEMP 36.3–36.9; O2SAT 92–100; BMI 28.8
[2021-11-24 02:16] LABS: Alanine Aminotransferase 38 IU/L (<50); Albumin 5.2 g/dL (3.5-5.0); Albumin Globulin Ratio 1.2 (1.0-2.8); Alkaline Phosphatase 29 U/L (38-126); Aspartate Aminotransferase 43 IU/L (17-59); BUN Creatinine Ratio 30.1 (6-22); Bilirubin Total 0.7 mg/dL (0.2-1.3); Blood Urea Nitrogen 31 mg/dL (9-20); Calcium 9.9 mg/dL (8.4-10.2); Carbon Dioxide 25 mmol/L (22-32); Chloride 103 mmol/L (98-107); Estimated Glomerular Filt Rate > 60.0 mL/min (>60); Globulin 4.3 g/dL (1.7-4.1); Glucose 196 mg/dL (80-110); HEMOLYSIS < 15 (0-50); Lipase 77 U/L (23-300); Potassium 4.9 mmol/L (3.4-5.1); Sodium 141 mmol/L (137-145); Total Protein 9.5 g/dL (6.3-8.2)
[2021-11-24 02:30] LABS: Add Manual Diff / Slide Review NO; Basophils Absolute Auto 100 /uL (0-100); Basophils Percent Auto 0.5 % (0-2); Eosinophils Absolute Auto 300 /uL (0-450); Eosinophils Percent Auto 2.4 % (2-4); Hemoglobin 16.1 g/dL (13.5-17.5); Lymphocytes Absolute Auto 800 /uL (1100-4500); Lymphocytes Percent Auto 6.8 % (25-40); Mean Corpuscular HGB Conc 33.6 % (30-36); Mean Corpuscular Hemoglobin 27.7 PG (26-34); Mean Corpuscular Volume 82.5 fL (80-100); Monocytes Absolute Auto 600 /uL (0-900); Monocytes Percent Auto 5.7 % (3-14); Neutrophils Absolute Auto 9600 /uL (1500-7000); Neutrophils Percent Auto 84.6 % (50-75); Platelet Count 219 X10^3/uL (150-400); Red Blood Cell Count 5.81 X10^6/uL (4.5-5.9); Red Cell Distribution Width 15.3 % (11.6-14.8); White Blood Cell Count 11.4 X10^3/uL (4.5-11.0)
--- NOTE | 2021-11-24 02:36 | ED.NAVMDI ---
HPI - Nausea/Vomiting/Diarrhea <Robbie Stauffer MD - Last Filed: 12/07/21 07:07> General Chief complaint: Nausea/Vomiting/Diarrhea Stated complaint: Nausea Time Seen by Provider: 11/24/21 01:54 Source: patient and EMS Mode of arrival: EMS History of Present Illness HPI Narrative: This 71-year-old gentleman has a history of AFib, pacemaker has been placed. He is anticoagulated with Apixiban. He is diabetic with hypertension. He had dinner, he described only as a different food for him. Was preparing to take his evening medications, he noted he was feeling nausea. He wondered if he can keep the medications down. He developed dry heaves, and severe dizziness. He has no visual changes, no confusion, no syncope. His was with him. There are no speech changes. There was no obvious confusion or dysarthria. There is no suggestion of a stroke. He saw his physics technical officer yesterday, there have been no cardiac issues. Paramedics arrived, noted he was in a paced rhythm. He was normotensive. He did not have hypoglycemia. IV Zofran was given. Symptoms have resolved. He has no headache, no sore throat. He denies cough or dyspnea he has no chronic GI issues. He had no hematemesis. He now feels fine. Related Data Home Medications Medication Instructions Recorded Confirmed ricks flavor (bulk) 1 ea PO DAILY #0 02/08/11 04/03/21 apixaban 5 mg tablet (Eliquis) 5 mg PO BID 07/19/18 04/03/21 polyethylene glycol 3350 17 17 gram PO DAILY 02/18/20 04/03/21 gram/dose oral powder (Miralax) sotalol 80 mg tablet 40 mg PO BID tab 05/05/20 04/03/21 Previous Rx's Medication Instructions Recorded triamcinolone acetonide 0.1 % 1 applic TOPICAL BID #30 g 04/03/21 topical ointment fenofibrate nanocrystallized 145 See Rx Instructions .ROUTE 09/05/21 mg tablet .COMPLEX #90 tab metformin 1,000 mg tablet See Rx Instructions .ROUTE 09/05/21 .COMPLEX #180 tab simvastatin 20 mg tablet See Rx Instructions .ROUTE 09/05/21 .COMPLEX #90 tab tadalafil 5 mg tablet 5 mg PO DAILY #90 tab 09/14/21 semaglutide (Ozempic) 0.25 mg (0.2 mL) SUBCUT QWEEK #1.5 09/16/21 ml semaglutide (Ozempic) 0.5 mg (0.4 mL) SUBCUT QWEEK #1.5 09/16/21 ml glipizide 5 mg tablet See Rx Instructions .ROUTE 10/14/21 .COMPLEX #180 tablet empagliflozin 10 mg tablet 10 mg PO QAM #30 tab 10/25/21 (Jardiance) lisinopril 5 mg tablet See Rx Instructions .ROUTE 10/25/21 .COMPLEX #90 tab meclizine 25 mg tablet 25 mg PO TID PRN #10 tab 11/24/21 ondansetron 4 mg disintegrating 4 mg PO Q8H PRN #10 tab 11/24/21 tablet Allergies Allergy/AdvReac Type Severity Reaction Status Date / Time Penicillins [PENICILLINS] Allergy Mild rash Verified 04/03/21 17:47 Review of Systems <Robbie Stauffer MD - Last Filed: 12/07/21 07:07> Constitutional Constitutional: Denies anorexia, Denies body ache(s), Denies chills, Denies fatigue, Denies fever(s) and Denies headache(s) Eyes Eyes: Denies blurry vision, Denies change in vision and Denies eye discharge ENT Ears, Nose, Mouth, and Throat: Denies vertigo, Reports dizziness, Denies headache(s), Denies sinus pressure and Denies sore throat Cardiovascular Cardiovascular: Denies chest pain, Denies syncope, Denies rapid heart rate, Denies pedal edema and Denies dyspnea Respiratory Respiratory: Denies cough and Denies dyspnea Gastrointestinal Gastrointestinal: Reports nausea, Reports vomiting and Denies hematemesis Genitourinary Genitourinary: Denies dysuria and Denies urinary frequency Musculoskeletal Musculoskeletal: Denies back pain, Denies muscle weakness and Denies numbness Integumentary/Breasts Skin/Breast: Denies rash Neurologic Neurologic: Denies confusion, Denies vertigo, Reports dizziness, Denies syncope, Denies headache(s) and Denies numbness Psychiatric Psychiatric: Denies anxiety, Denies confusion and Denies depression Endocrine Endocrine: Denies fatigue Hematologic/Lymphatic On Anticoagulants: Yes Patient History <Robbie Stauffer MD - Last Filed: 12/07/21 07:07> Medical History Atrial fibrillation (~2005) Beta-catrachita intolerance CAD (coronary artery disease) (2005) Chicken pox Gout (1989) Hemorrhoids (2008) Hydrocele of testis (01/2018) Hyperlipidemia Hypertension Kidney stones (~2005) Measles Mumps Pacemaker Presence of stent in right coronary artery (~2006) Sleep apnea (1987) Thalassemia trait (1979) Surgical History Anesthesia History of nasal surgery History of rectal surgery (2011) S/P coronary artery stent placement (~2006) S/P coronary artery stent placement (2010) Status post right partial knee replacement (~2009) Family History Father Heart disease Hypertension Grandfather Heart disease Grandmother Stroke Mother Cancer Brother Hypertension Heart disease Stroke Sister Heart disease Breast cancer Social History marital status: number of children: 2 household members: spouse lives independently: Yes caregiver/support person: No housing: house Smoking Status: Former smoker second hand exposure: No alcohol intake: current substance use type: does not use eating out: rarely or never Type(s) of exercise: walking and swimming Smoking Status: Former smoker alcohol intake frequency: holidays/special occasions only Substance Use Type: does not use Exam <Robbie Stauffer MD - Last Filed: 12/07/21 07:07> Initial Vital Signs Initial Vital Signs: Vital Signs Temperature 97.4 F L 11/24/21 01:57 Pulse Rate 72 11/24/21 01:57 Respiratory Rate 22 11/24/21 01:57 Blood Pressure 137/74 11/24/21 01:57 Pulse Oximetry 99 11/24/21 01:57 Const General: cooperative, healthy appearing, comfortable, well developed and well groomed HENND Head: normal to inspection, normocephalic and atraumatic Face and sinus: normal facial exam Mouth: oral mucosae normal Throat: posterior oropharynx normal Eyes Conjunctivae: conjunctivae normal Sclera: sclerae normal Pupils: PERRL EOM: EOM intact bilaterally Other: No visual field deficits. Neck Neck: No JVD and other (No carotid bruits.) Chest Chest: normal inspection of the chest Resp Effort & Inspection: normal respiratory effort Auscultation: clear to auscultation bilaterally Cardio Rate: regular rate Rhythm: regular rhythm Heart Sounds: S1 normal, S2 normal and no murmurs GI Inspection: normal to inspection Palpation: soft and No tender Auscultation: normal bowel sounds Back/Spine/Pelvis Back: normal to inspection Skin General: no rashes or lesions noted Neuro General: patient alert, patient awake and patient oriented x3 Extrem General: normal to inspection, no pedal edema and no calf tenderness Psych Mental Status: mental status grossly normal <Cayla To DO - Last Filed: 11/24/21 08:49> Initial Vital Signs Initial Vital Signs: Vital Signs Temperature 97.4 F L 11/24/21 01:57 Pulse Rate 72 11/24/21 01:57 Respiratory Rate 22 11/24/21 01:57 Blood Pressure 137/74 11/24/21 01:57 Pulse Oximetry 99 11/24/21 01:57 Scores <Robbie Stauffer MD - Last Filed: 12/07/21 07:07> NIH Stroke Scale Level of Conciousness: Alert, keenly responsive Ask month/age: Answers both questions correctly. Open/close eyes, close hand: Performs both tasks correctly Best gaze horizontal: Normal Visual mares: No visual loss Facial palsy: Normal symetrical movement Left arm drift: No drift for full 10 sec Right arm drift: No drift for full 10 sec Left leg drift: No drift for full 5 sec Right leg drift: No drift for full 5 sec Limb ataxia: Absent Sensory on face/arms/legs: Normal, no sensory loss Best language: No aphasia, normal Dysarthria: Normal Extinction or inattention: No abnormality Total NIH Stroke scale score: 0 <Cayla To DO - Last Filed: 11/24/21 08:49> NIH Stroke Scale Total NIH Stroke scale score: 0 Course <Robbie Stauffer MD - Last Filed: 12/07/21 07:07> Course Course Narrative: The patient initially improved after Valium was given by paramedics at his home. Cardiovascular neurologic evaluation here was initially quite reassuring. The patient tried to stand, developed nausea vomiting again. Reglan and Benadryl were given, with some relief. CT and CTA of the head were obtained, meclizine was given. The studies are normal. The meclizine has not helped yet. He is now receiving Valium. The patient will be here through transition at change of shift. The patient's care will be transitioned to Dr. To. Orders Ordered: Discontinued Medications Diazepam (Diazepam 5 Mg Tablet) 5 mg PO NOW ONE Stop: 11/24/21 06:28 Last Admin: 11/24/21 06:46 Dose: Not Given Documented by: YUDELKA Diphenhydramine HCl (Diphenhydramine 50 Mg/Ml Vial) 25 mg IV NOW ONE Stop: 11/24/21 04:09 Last Admin: 11/24/21 04:12 Dose: 25 mg Documented by: YUDELKA Meclizine HCl (Meclizine Hcl 12.5 Mg Tablet) 25 mg PO NOW ONE Stop: 11/24/21 05:24 Last Admin: 11/24/21 05:46 Dose: 25 mg Documented by: YUDELKA Metoclopramide HCl (Metoclopramide 10 Mg/2 Ml Inj) 10 mg IV NOW ONE Stop: 11/24/21 04:09 Last Admin: 11/24/21 04:12 Dose: 10 mg Documented by: YUDELKA Vital Signs Vital signs: Vital Signs - 8 hr 11/24/21 01:57 11/24/21 02:00 11/24/21 02:30 Temperature 97.4 F L Pulse Rate 72 71 Respiratory Rate 22 21 19 Blood Pressure 137/74 137/74 125/64 Pulse Oximetry 99 100 98 11/24/21 03:00 11/24/21 03:30 11/24/21 04:00 Temperature Pulse Rate 70 72 76 Respiratory Rate 20 16 17 Blood Pressure 123/65 129/68 124/71 Pulse Oximetry 98 98 96 11/24/21 04:30 11/24/21 05:00 11/24/21 05:17 Temperature 98.5 F Pulse Rate 78 78 79 Respiratory Rate 22 14 18 Blood Pressure 132/66 110/60 147/72 H Pulse Oximetry 95 96 95 11/24/21 05:30 11/24/21 06:00 11/24/21 06:30 Temperature Pulse Rate 82 85 84 Respiratory Rate 18 13 20 Blood Pressure 132/72 131/70 113/63 Pulse Oximetry 95 94 93 11/24/21 07:00 11/24/21 07:30 11/24/21 08:00 Temperature Pulse Rate 80 79 81 Respiratory Rate 19 18 18 Blood Pressure 132/67 126/65 Pulse Oximetry 92 93 94 11/24/21 08:13 11/24/21 08:18 Temperature Pulse Rate 81 88 Respiratory Rate 20 17 Blood Pressure 119/66 148/75 H Pulse Oximetry 96 96 <Cayla To DO - Last Filed: 11/24/21 08:49> Orders Ordered: Discontinued Medications Diazepam (Diazepam 5 Mg Tablet) 5 mg PO NOW ONE Stop: 11/24/21 06:28 Last Admin: 11/24/21 06:46 Dose: Not Given Documented by: YUDELKA Diphenhydramine HCl (Diphenhydramine 50 Mg/Ml Vial) 25 mg IV NOW ONE Stop: 11/24/21 04:09 Last Admin: 11/24/21 04:12 Dose: 25 mg Documented by: YUDELKA Meclizine HCl (Meclizine Hcl 12.5 Mg Tablet) 25 mg PO NOW ONE Stop: 11/24/21 05:24 Last Admin: 11/24/21 05:46 Dose: 25 mg Documented by: YUDELKA Metoclopramide HCl (Metoclopramide 10 Mg/2 Ml Inj) 10 mg IV NOW ONE Stop: 11/24/21 04:09 Last Admin: 11/24/21 04:12 Dose: 10 mg Documented by: YUDELKA Vital Signs Vital signs: Vital Signs - 8 hr 11/24/21 01:57 11/24/21 02:00 11/24/21 02:30 Temperature 97.4 F L Pulse Rate 72 71 Respiratory Rate 22 21 19 Blood Pressure 137/74 137/74 125/64 Pulse Oximetry 99 100 98 11/24/21 03:00 11/24/21 03:30 11/24/21 04:00 Temperature Pulse Rate 70 72 76 Respiratory Rate 20 16 17 Blood Pressure 123/65 129/68 124/71 Pulse Oximetry 98 98 96 11/24/21 04:30 11/24/21 05:00 11/24/21 05:17 Temperature 98.5 F Pulse Rate 78 78 79 Respiratory Rate 22 14 18 Blood Pressure 132/66 110/60 147/72 H Pulse Oximetry 95 96 95 11/24/21 05:30 11/24/21 06:00 11/24/21 06:30 Temperature Pulse Rate 82 85 84 Respiratory Rate 18 13 20 Blood Pressure 132/72 131/70 113/63 Pulse Oximetry 95 94 93 11/24/21 07:00 11/24/21 07:30 11/24/21 08:00 Temperature Pulse Rate 80 79 81 Respiratory Rate 19 18 18 Blood Pressure 132/67 126/65 Pulse Oximetry 92 93 94 11/24/21 08:13 11/24/21 08:18 Temperature Pulse Rate 81 88 Respiratory Rate 20 17 Blood Pressure 119/66 148/75 H Pulse Oximetry 96 96 MDM - Nausea/Vomiting/Diarrhea <Robbie Stauffer MD - Last Filed: 12/07/21 07:07> Lab Data Result diagrams: 11/24/21 01:50 11/24/21 01:50 Labs: Lab Results 11/24/21 11/24/21 11/24/21 Range/Units 01:50 01:50 01:50 WBC 11.4 H (4.5-11.0) X10^3/uL RBC 5.81 (4.5-5.9) X10^6/uL Hgb 16.1 (13.5-17.5) g/dL Hct 48.0 (41-53) % MCV 82.5 (80-100) fL MCH 27.7 (26-34) PG MCHC 33.6 (30-36) % RDW 15.3 H (11.6-14.8) % Plt Count 219 (150-400) X10^3/uL Neut % (Auto) 84.6 H (50-75) % Lymph % (Auto) 6.8 L (25-40) % Canyon % (Auto) 5.7 (3-14) % Eos % (Auto) 2.4 (2-4) % Baso % (Auto) 0.5 (0-2) % Neut # (Auto) 9600 H (0375-7197) /uL Lymph # (Auto) 800 L (2749-4787) /uL Canyon # (Auto) 600 (0-900) /uL Eos # (Auto) 300 (0-450) /uL Baso # (Auto) 100 (0-100) /uL PT 12.2 (10.1-12.7) SECONDS INR 1.1 (0.9-1.3) Sodium 141 (137-145) mmol/L Potassium 4.9 (3.4-5.1) mmol/L Chloride 103 (98-107) mmol/L Carbon Dioxide 25 (22-32) mmol/L BUN 31 H (9-20) mg/dL Creatinine 1.03 (0.66-1.25) mg/dL Estimated GFR > 60.0 (>60) mL/min BUN/Creatinine Ratio 30.1 H (6-22) Glucose 196 H (80-110) mg/dL Calcium 9.9 (8.4-10.2) mg/dL Total Bilirubin 0.7 (0.2-1.3) mg/dL AST 43 (17-59) IU/L ALT 38 (<50) IU/L Alkaline Phosphatase 29 L (38-126) U/L Total Creatine Kinase (55-170) U/L CK-MB (CK-2) (<2.37) ng/mL CK-MB (CK-2) Rel Index (1.5-5.0) % Troponin I (0.01-0.034) ng/mL Total Protein 9.5 H (6.3-8.2) g/dL Albumin 5.2 H (3.5-5.0) g/dL Globulin 4.3 H (1.7-4.1) g/dL Albumin/Globulin Ratio 1.2 (1.0-2.8) Lipase 77 (23-300) U/L 11/24/21 Range/Units 01:50 WBC (4.5-11.0) X10^3/uL RBC (4.5-5.9) X10^6/uL Hgb (13.5-17.5) g/dL Hct (41-53) % MCV (80-100) fL MCH (26-34) PG MCHC (30-36) % RDW (11.6-14.8) % Plt Count (150-400) X10^3/uL Neut % (Auto) (50-75) % Lymph % (Auto) (25-40) % Canyon % (Auto) (3-14) % Eos % (Auto) (2-4) % Baso % (Auto) (0-2) % Neut # (Auto) (4508-0004) /uL Lymph # (Auto) (1326-6824) /uL Canyon # (Auto) (0-900) /uL Eos # (Auto) (0-450) /uL Baso # (Auto) (0-100) /uL PT (10.1-12.7) SECONDS INR (0.9-1.3) Sodium (137-145) mmol/L Potassium (3.4-5.1) mmol/L Chloride (98-107) mmol/L Carbon Dioxide (22-32) mmol/L BUN (9-20) mg/dL Creatinine (0.66-1.25) mg/dL Estimated GFR (>60) mL/min BUN/Creatinine Ratio (6-22) Glucose (80-110) mg/dL Calcium (8.4-10.2) mg/dL Total Bilirubin (0.2-1.3) mg/dL AST (17-59) IU/L ALT (<50) IU/L Alkaline Phosphatase (38-126) U/L Total Creatine Kinase 143 (55-170) U/L CK-MB (CK-2) 3.16 H (<2.37) ng/mL CK-MB (CK-2) Rel Index 2.2 (1.5-5.0) % Troponin I < 0.012 (0.01-0.034) ng/mL Total Protein (6.3-8.2) g/dL Albumin (3.5-5.0) g/dL Globulin (1.7-4.1) g/dL Albumin/Globulin Ratio (1.0-2.8) Lipase (23-300) U/L Urine Dip Bedside Urine Glucose 1000 mg/dl Bedside Urine Bilirubin - Negative Bedside Urine Ketone - Negative Urine Specific [place] 1.020 Bedside Urine Occult Blood - Negative Bedside Urine pH 6.0 Bedside Urine Protein - Negative Bedside Urine Urobilinogen - Negative Bedside Urine Nitrite - Negative Bedside Urine Leukocytes - Negative Esterase Imaging Data CT scan - head: Radiologist's Impression: No acute intracranial abnormalities. CTA - brain/neck: Radiologist's Impression: No acute stenosis or occlusions in the intracranial vasculature. ECG Data Attestation: I personally reviewed and interpreted this ECG as follows: (Paced rhythm rate 72 beats per minute. No acute ST T wave changes.) <Cayla Zuleika, DO - Last Filed: 11/24/21 08:49> Lab Data Labs: Lab Results 11/24/21 11/24/21 11/24/21 Range/Units 01:50 01:50 01:50 WBC 11.4 H (4.5-11.0) X10^3/uL RBC 5.81 (4.5-5.9) X10^6/uL Hgb 16.1 (13.5-17.5) g/dL Hct 48.0 (41-53) % MCV 82.5 (80-100) fL MCH 27.7 (26-34) PG MCHC 33.6 (30-36) % RDW 15.3 H (11.6-14.8) % Plt Count 219 (150-400) X10^3/uL Neut % (Auto) 84.6 H (50-75) % Lymph % (Auto) 6.8 L (25-40) % Canyon % (Auto) 5.7 (3-14) % Eos % (Auto) 2.4 (2-4) % Baso % (Auto) 0.5 (0-2) % Neut # (Auto) 9600 H (3556-4627) /uL Lymph # (Auto) 800 L (9478-3289) /uL Canyon # (Auto) 600 (0-900) /uL Eos # (Auto) 300 (0-450) /uL Baso # (Auto) 100 (0-100) /uL PT 12.2 (10.1-12.7) SECONDS INR 1.1 (0.9-1.3) Sodium 141 (137-145) mmol/L Potassium 4.9 (3.4-5.1) mmol/L Chloride 103 (98-107) mmol/L Carbon Dioxide 25 (22-32) mmol/L BUN 31 H (9-20) mg/dL Creatinine 1.03 (0.66-1.25) mg/dL Estimated GFR > 60.0 (>60) mL/min BUN/Creatinine Ratio 30.1 H (6-22) Glucose 196 H (80-110) mg/dL Calcium 9.9 (8.4-10.2) mg/dL Total Bilirubin 0.7 (0.2-1.3) mg/dL AST 43 (17-59) IU/L ALT 38 (<50) IU/L Alkaline Phosphatase 29 L (38-126) U/L Total Creatine Kinase (55-170) U/L CK-MB (CK-2) (<2.37) ng/mL CK-MB (CK-2) Rel Index (1.5-5.0) % Troponin I (0.01-0.034) ng/mL Total Protein 9.5 H (6.3-8.2) g/dL Albumin 5.2 H (3.5-5.0) g/dL Globulin 4.3 H (1.7-4.1) g/dL Albumin/Globulin Ratio 1.2 (1.0-2.8) Lipase 77 (23-300) U/L 11/24/21 Range/Units 01:50 WBC (4.5-11.0) X10^3/uL RBC (4.5-5.9) X10^6/uL Hgb (13.5-17.5) g/dL Hct (41-53) % MCV (80-100) fL MCH (26-34) PG MCHC (30-36) % RDW (11.6-14.8) % Plt Count (150-400) X10^3/uL Neut % (Auto) (50-75) % Lymph % (Auto) (25-40) % Canyon % (Auto) (3-14) % Eos % (Auto) (2-4) % Baso % (Auto) (0-2) % Neut # (Auto) (5994-5573) /uL Lymph # (Auto) (2702-9177) /uL Canyon # (Auto) (0-900) /uL Eos # (Auto) (0-450) /uL Baso # (Auto) (0-100) /uL PT (10.1-12.7) SECONDS INR (0.9-1.3) Sodium (137-145) mmol/L Potassium (3.4-5.1) mmol/L Chloride (98-107) mmol/L Carbon Dioxide (22-32) mmol/L BUN (9-20) mg/dL Creatinine (0.66-1.25) mg/dL Estimated GFR (>60) mL/min BUN/Creatinine Ratio (6-22) Glucose (80-110) mg/dL Calcium (8.4-10.2) mg/dL Total Bilirubin (0.2-1.3) mg/dL AST (17-59) IU/L ALT (<50) IU/L Alkaline Phosphatase (38-126) U/L Total Creatine Kinase 143 (55-170) U/L CK-MB (CK-2) 3.16 H (<2.37) ng/mL CK-MB (CK-2) Rel Index 2.2 (1.5-5.0) % Troponin I < 0.012 (0.01-0.034) ng/mL Total Protein (6.3-8.2) g/dL Albumin (3.5-5.0) g/dL Globulin (1.7-4.1) g/dL Albumin/Globulin Ratio (1.0-2.8) Lipase (23-300) U/L Urine Dip Bedside Urine Glucose 1000 mg/dl Bedside Urine Bilirubin - Negative Bedside Urine Ketone - Negative Urine Specific [place] 1.020 Bedside Urine Occult Blood - Negative Bedside Urine pH 6.0 Bedside Urine Protein - Negative Bedside Urine Urobilinogen - Negative Bedside Urine Nitrite - Negative Bedside Urine Leukocytes - Negative Esterase MDM Narrative Medical decision making narrative: Patient signed out to me by Dr. Stauffer. Seen and evaluated patient myself. He states that last night he was taking his pills when suddenly he got very nauseous and dizzy. He was unsteady on his feet trying to get from the kitchen to the living room. The dizziness seems to get worse with any type of movement. He was given Benadryl and meclizine here he has slept for a little bit. He is overall feeling better he now is able to get up and use the restroom. He denies any abdominal pain. He is no longer feeling nauseated. He has no numbness tingling or weakness. CT angio was negative. Patient says that he has never had any episode of vertigo before of is completely new. Patient is ambulatory in the ED with out any difficulty. Discharge Plan Departure Patient Disposition: Home Clinical Impression: Nausea & vomiting, Dizziness, Vertigo Instructions: Vertigo Activity Restrictions/Additional Instructions: *You have been diagnosed with vertigo *What to do: Recommend going home resting taking it easy today *Continue to take medications as directed--> sent to [facility] Zofran 4 mg every 8 hours if needed for nausea or vomiting Meclizine 25 mg every 8 hours if needed for dizziness only *Follow up with your primary care provider in 2-3 days or call [phone] *Return to ER if you should have worsening dizziness falling persistent vomiting abdominal pain or any new, worsening or concerning symptoms Prescriptions: New meclizine 25 mg tablet 25 mg PO TID PRN (Reason: dizziness) Qty: 10 0RF ondansetron 4 mg tablet,disintegrating 4 mg PO Q8H PRN (Reason: nausea and vomiting) Qty: 10 0RF No Action sotalol 80 mg tablet 40 mg PO BID 0RF triamcinolone acetonide 0.1 % ointment 1 applic topical BID Qty: 30 0RF tadalafil 5 mg tablet 5 mg PO DAILY Qty: 90 3RF polyethylene glycol 3350 [Miralax] 17 gram/dose powder 17 gram PO DAILY 0RF ricks flavor (bulk) Syrup 1 ea PO DAILY Qty: 0 0RF simvastatin 20 mg tablet See Rx Instructions .ROUTE .COMPLEX Qty: 90 3RF Dose Instruction: TAKE 1 TABLET BY MOUTH AT BEDTIME Rx Instructions: TAKE 1 TABLET BY MOUTH AT BEDTIME metformin 1,000 mg tablet See Rx Instructions .ROUTE .COMPLEX Qty: 180 3RF Dose Instruction: TAKE 1 TABLET BY MOUTH TWICE DAILY WITH MEALS Rx Instructions: TAKE 1 TABLET BY MOUTH TWICE DAILY WITH MEALS fenofibrate nanocrystallized 145 mg tablet See Rx Instructions .ROUTE .COMPLEX Qty: 90 3RF Dose Instruction: TAKE 1 TABLET BY MOUTH AT BEDTIME Rx Instructions: TAKE 1 TABLET BY MOUTH AT BEDTIME Ozempic 0.25 mg or 0.5 mg(2 mg/1.5 mL) pen injector 0.25 mg SUBCUT QWEEK Qty: 1.5 0RF Rx Instructions: for 4 doses Ozempic 0.25 mg or 0.5 mg(2 mg/1.5 mL) pen injector 0.5 mg SUBCUT QWEEK Qty: 1.5 3RF Rx Instructions: to start after 4 weeks on 0.25mg dose glipizide 5 mg tablet See Rx Instructions .ROUTE .COMPLEX Qty: 180 3RF Dose Instruction: Take one tablet by mouth twice daily before meals Rx Instructions: Take one tablet by mouth twice daily before meals lisinopril 5 mg tablet See Rx Instructions .ROUTE .COMPLEX Qty: 90 3RF Dose Instruction: TAKE 1 TABLET BY MOUTH DAILY Rx Instructions: TAKE 1 TABLET BY MOUTH DAILY Jardiance 10 mg tablet 10 mg PO QAM Qty: 30 5RF apixaban [Eliquis] 5 mg tablet 5 mg PO BID 0RF Referrals: Flor Klein MD [Primary Care Provider] -
[2021-11-24 03:43] LABS: INR 1.1 (0.9-1.3); Prothrombin Time 12.2 SECONDS (10.1-12.7)
[2021-11-24 03:47] LABS: Creatine Kinase 143 U/L (55-170)
[2021-11-24 04:00] LABS: Troponin I < 0.012 ng/mL (0.01-0.034)
[2021-11-24 04:02] LABS: CKMB % Relative Index 2.2 % (1.5-5.0); Creatine Kinase MB 3.16 ng/mL (<2.37)
[2021-11-24] MEDS: METOCLOPRAMIDE 10 MG/2 ML INJ IV (04:12)
[2021-11-24] MEDS: diphenhydrAMINE 50 MG/ML VIAL 25 MG IV (04:12)
--- NOTE | 2021-11-24 04:22 | PC.NURSE ---
After siting at the bedside to void, pt had another episode of nausea and dry heaving. monitoring manager shows no changes and pt denies CP or SOB. MD aware and pt given Reglan 10mg IV and Benadryl 25mg IV. Pt resting calmly in bed 15 min after event with equal chest rise and is A&Ox4.
--- NOTE | 2021-11-24 04:52 | DI.CT.S_ITS ---
PROCEDURE: CT HEAD/BRAIN WO CON INDICATIONS: Persistent dizziness TECHNIQUE: Noncontrast 4.5 mm thick angled axial sections acquired from the foramen magnum to the vertex, with coronal and sagittal reformats. For radiation dose reduction, the following was used: automated exposure control, adjustment of mA and/or kV according to patient size. COMPARISON: [facility], CT, HEAD WITHOUT CONTRAST, 03/11/2017, 14:45. FINDINGS: Image quality: Excellent. CSF spaces: Basal cisterns are patent. No extra-axial fluid collections. The ventricles are symmetric in size and shape. Brain: No intracranial bleeds or masses. There is cerebral volume loss for age, with resultant ventricular and sulcal prominence. There are periventricular and deep white matter chronic small vessel ischemic changes. Skull and face: Calvarium and visualized facial bones appear intact, without suspicious lesions. Sinuses: Visualized sinuses and mastoids are clear. IMPRESSION: No evidence acute intracranial process. Comment: Final report is concordant with preliminary interpretation provided by [facility]. Dictated by: Marc Obando M.D. on 11/24/2021 at 7:37 Approved by: Marc Obando M.D. on 11/24/2021 at 7:38
--- NOTE | 2021-11-24 04:52 | DI.CT.S_ITS ---
PROCEDURE: CT ANGIO HEAD AND NECK INDICATIONS: Persistent dizziness TECHNIQUE: After the administration of intravenous contrast, 1 mm thick sections acquired from the aortic arch through the [place] of [place]. Post-contrast 4.5 mm thick sections then re-acquired from the foramen magnum to the vertex. 3-dimensional zhwychg-tddtuuydm-rndxdkrmwf (MIP) and/or volume rendering reformats were acquired of the central intracranial vasculature and neck separately. For radiation dose reduction, the following was used: automated exposure control, adjustment of mA and/or kV according to patient size. COMPARISON: [facility], CT, CT HEAD/BRAIN WO CON, 11/24/2021, 5:03. FINDINGS: Image quality: Excellent. BRAIN: CSF spaces: Ventricles are normal in size and shape. Basal cisterns are patent. No extra-axial fluid collections. Brain: No midline shift. No intracranial bleeds or masses. Carmichael-white matter interface appears intact. Age-related volume loss and mild small vessel ischemic change. Skull and face: Calvarium and facial bones appear intact, without suspicious lesions. Orbits appear normal. Sinuses: Sinuses and mastoids are clear. HEAD CT ANGIOGRAPHY: Anterior circulation: Intracranial internal carotid arteries are normal in size and flow. The flow within the paired anterior cerebral arteries is normal and symmetric. The flow within the middle cerebral arteries is normal and symmetric. The anterior communicating artery is seen. No aneurysms are seen. Posterior circulation: Visualized portions of the vertebral arteries demonstrate normal caliber, and join to form a normal appearing basilar artery. The distal right vertebral artery is mildly diminutive. The distal left vertebral artery is dominant. Flow within the posterior cerebral arteries is normal and symmetric. No aneurysms are seen. NECK CT ANGIOGRAPHY: Carotid system: The great vessels demonstrate a conventional anatomy as they arise from the aortic arch. The origins of the common carotid arteries appear patent. The common carotid arteries demonstrate normal caliber and courses. The bifurcation regions are both widely patent. The internal carotid arteries demonstrate normal calibers and courses. Mild proximal internal carotid artery calcifications. Posterior circulation: The origins of the vertebral arteries both appear widely patent. The more superior extracranial portions of both vertebral arteries also demonstrate normal courses and calibers. They join to form a normal appearing basilar artery. Soft tissues: Visualized neck soft tissues demonstrate no suspicious abnormalities. Bones: No suspicious bony lesions. Visualized cervical spine appears normally aligned. IMPRESSION: 1. No evidence acute stroke, hemorrhage, or mass. 2. Unremarkable CTA head. No stenosis, aneurysm, occlusion, or focal filling defect. 3. Patent internal carotids. Comment: Final report is concordant with preliminary interpretation provided by [facility]. Any quantitative measurements of stenosis were performed using NASCET criteria. Dictated by: Marc Obando M.D. on 11/24/2021 at 7:38 Approved by: Marc Obando M.D. on 11/24/2021 at 7:43
[2021-11-24] MEDS: MECLIZINE HCL 12.5 MG TABLET 25 MG PO (05:46)
== END 2021-11-24 08:35 | disposition home or self-care (01) ==
PROVIDERS: Emergency Medicine; Emergency Provider Emergency Medicine; PCP Family Medicine
DX: R11.2 Nausea with vomiting, unspecified (principal); R42 Dizziness and giddiness; Z79.01 Long term (current) use of anticoagulants; Z87.891 Personal history of nicotine dependence
CPT/HCPCS: 36415; 70450; 70496; 70498; 80053; 81003; 82550; 82553; 83690; 84484; 85025; 85610; 93005; 93010; 96374; 96375; 99284; J1200; J2765; Q9967

== ENCOUNTER → 2022-02-01 07:39 | Outpatient (CLI) | payer MEDICARE, OTHER, SELFPAY ==
[2022-02-01 07:58] LABS: Hemoglobin A1C% w Est Avg Glu 6.5 % (4.0-6.0)
== END ==
PROVIDERS: PCP Family Medicine; Referring Provider Family Medicine; Visit Provider Family Medicine
DX: E11.9 Type 2 diabetes mellitus without complications (principal)
CPT/HCPCS: 36415; 83036

== ENCOUNTER → 2022-05-17 07:23 | Outpatient (CLI) | payer MEDICARE, OTHER, SELFPAY ==
[2022-05-17 09:52] LABS: Hemoglobin A1C% w Est Avg Glu 6.6 % (4.0-6.0)
== END ==
PROVIDERS: PCP Family Medicine; Referring Provider Family Medicine; Visit Provider Family Medicine
DX: E11.610 Type 2 diabetes mellitus with diabetic neuropathic arthropathy (principal)
CPT/HCPCS: 36415; 83036

== ENCOUNTER → 2022-05-23 11:33 | Outpatient (CLI) | payer MEDICARE, OTHER, SELFPAY ==
[2022-05-23 13:26] LABS: BUN Creatinine Ratio 33.3 (6-22); Blood Urea Nitrogen 29 mg/dL (9-20); Calcium 9.6 mg/dL (8.4-10.2); Carbon Dioxide 21 mmol/L (22-32); Chloride 104 mmol/L (98-107); Estimated Glomerular Filt Rate > 60 mL/min (>60); Glucose 141 mg/dL (80-110); HEMOLYSIS < 15 (0-50); Potassium 4.5 mmol/L (3.4-5.1); Sodium 138 mmol/L (137-145)
== END ==
PROVIDERS: PCP Family Medicine; Referring Provider Nurse Practitioner; Visit Provider Nurse Practitioner
DX: I48.0 Paroxysmal atrial fibrillation (principal); Z51.81 Encounter for therapeutic drug level monitoring
CPT/HCPCS: 36415; 80048

== ENCOUNTER → 2022-09-14 07:12 | Outpatient (CLI) | payer MEDICARE, OTHER, SELFPAY ==
[2022-09-14 08:13] LABS: Cholesterol 142 mg/dL (140-199); HDL Cholesterol 30 mg/dL (40-60); LDL Cholesterol Calculated 34 mg/dL (<100); Triglycerides 392 mg/dL (35-150)
== END ==
PROVIDERS: PCP Family Medicine; Referring Provider Family Medicine; Visit Provider Family Medicine
DX: E78.5 Hyperlipidemia, unspecified (principal)
CPT/HCPCS: 36415; 80061

== ENCOUNTER → 2022-10-27 12:55 | Outpatient (CLI) | payer MEDICARE, OTHER, SELFPAY ==
[2022-10-27 13:57] LABS: Hemoglobin A1C% w Est Avg Glu 7.1 % (4.0-6.0)
== END ==
PROVIDERS: PCP Family Medicine; Referring Provider Family Medicine; Visit Provider Family Medicine
DX: E11.610 Type 2 diabetes mellitus with diabetic neuropathic arthropathy (principal)
CPT/HCPCS: 36415; 83036

== ENCOUNTER → 2023-03-02 10:51 | Outpatient (CLI) | payer MEDICARE, OTHER, SELFPAY ==
[2023-03-02 11:49] LABS: Alanine Aminotransferase 23 IU/L (<50); Albumin 4.1 g/dL (3.5-5.0); Albumin Globulin Ratio 1.2 (1.0-2.8); Alkaline Phosphatase 33 U/L (38-126); Aspartate Aminotransferase 31 IU/L (17-59); BUN Creatinine Ratio 28.3 (6-22); Bilirubin Total 0.5 mg/dL (0.2-1.3); Blood Urea Nitrogen 26 mg/dL (9-20); Calcium 9.1 mg/dL (8.4-10.2); Carbon Dioxide 22 mmol/L (22-32); Chloride 102 mmol/L (98-107); Cholesterol 132 mg/dL (140-199); Estimated Glomerular Filt Rate > 60 mL/min (>60); Globulin 3.4 g/dL (1.7-4.1); Glucose 178 mg/dL (80-110); HDL Cholesterol 30 mg/dL (40-60); HEMOLYSIS < 15 (0-50); LDL Cholesterol Calculated 41 mg/dL (<100); Potassium 4.9 mmol/L (3.4-5.1); Sodium 135 mmol/L (137-145); Total Protein 7.5 g/dL (6.3-8.2); Triglycerides 304 mg/dL (35-150)
[2023-03-02 12:44] LABS: Creatinine Urine Random 72.9 mg/dL
[2023-03-02 12:49] LABS: Microalbumi Creatinin Ratio Ur 52.1 ug/mg CR (<30); Microalbumin Urine Random 3.8 mg/dL (0-1.6)
[2023-03-03 09:30] LABS: Labcorp Hemoglobin (Hb) A1c 7.2 % (4.8-5.6)
== END ==
PROVIDERS: PCP Family Medicine; Referring Provider Family Medicine; Visit Provider Family Medicine
DX: E11.610 Type 2 diabetes mellitus with diabetic neuropathic arthropathy (principal)
CPT/HCPCS: 36415; 80053; 80061; 82043; 82570; 83036

== ENCOUNTER → 2023-03-30 13:01 | Outpatient (CLI) | payer MEDICARE, OTHER, SELFPAY ==
[2023-03-30 15:32] LABS: Prostate Specific Antigen 0.185 ng/mL (0.10-4.00)
== END ==
PROVIDERS: PCP Family Medicine; Referring Provider Urology; Visit Provider Urology
DX: N40.1 Benign prostatic hyperplasia with lower urinary tract symptoms (principal); N13.8 Other obstructive and reflux uropathy
CPT/HCPCS: 36415; 84153

== ENCOUNTER → 2023-07-25 09:53 | Outpatient (CLI) | payer MEDICARE, OTHER, SELFPAY ==
[2023-07-25 11:31] LABS: Add Manual Diff / Slide Review NO; Basophils Absolute Auto 0 /uL (0-100); Basophils Percent Auto 0.8 % (0-2); Eosinophils Absolute Auto 300 /uL (0-450); Eosinophils Percent Auto 4.6 % (2-4); Hematocrit 29.9 % (41-53); Hemoglobin 9.8 g/dL (13.5-17.5); Lymphocytes Absolute Auto 1400 /uL (1100-4500); Lymphocytes Percent Auto 23.9 % (25-40); Mean Corpuscular HGB Conc 32.7 % (30-36); Mean Corpuscular Hemoglobin 23.2 PG (26-34); Mean Corpuscular Volume 71.1 fL (80-100); Monocytes Absolute Auto 700 /uL (0-900); Monocytes Percent Auto 11.6 % (3-14); Neutrophils Absolute Auto 3500 /uL (1500-7000); Neutrophils Percent Auto 59.1 % (50-75); Platelet Count 289 X10^3/uL (150-400); Red Blood Cell Count 4.21 X10^6/uL (4.5-5.9); Red Cell Distribution Width 18.9 % (11.6-14.8); White Blood Cell Count 5.9 X10^3/uL (4.5-11.0)
[2023-07-25 11:53] LABS: Alanine Aminotransferase 17 IU/L (<50); Albumin 4.1 g/dL (3.5-5.0); Alkaline Phosphatase 32 U/L (38-126); Aspartate Aminotransferase 28 IU/L (17-59); BUN Creatinine Ratio 27.2 (6-22); Bilirubin Total 0.5 mg/dL (0.2-1.3); Blood Urea Nitrogen 22 mg/dL (9-20); Calcium 9.8 mg/dL (8.4-10.2); Carbon Dioxide 21 mmol/L (22-32); Chloride 106 mmol/L (98-107); Estimated Glomerular Filt Rate > 60 mL/min (>60); Globulin 4.1 g/dL (1.7-4.1); Glucose 156 mg/dL (80-110); HEMOLYSIS < 15 (0-50); Potassium 4.7 mmol/L (3.4-5.1); Sodium 137 mmol/L (137-145); Total Protein 8.2 g/dL (6.3-8.2)
[2023-07-25 12:10] LABS: Hemoglobin A1C% w Est Avg Glu 6.6 % (4.0-6.0)
[2023-07-25 12:23] LABS: Thyroid Stimulating Hormone 2.43 uIU/mL (0.47-4.68)
[2023-07-26 18:23] LABS: HEMOLYSIS < 15 (0-50); Iron 50 ug/dL (49-181)
[2023-07-26 18:35] LABS: Percent Iron Saturation 12 % (20-50); Total Iron Binding Capacity 434 ug/dL (261-462); Transferrin 379 mg/dL (206-381)
== END ==
PROVIDERS: PCP Family Medicine; Referring Provider Nurse Practitioner; Visit Provider Nurse Practitioner
DX: R55 Syncope and collapse (principal); E11.610 Type 2 diabetes mellitus with diabetic neuropathic arthropathy
CPT/HCPCS: 36415; 80053; 83036; 83540; 83550; 84443; 85025

== ENCOUNTER → 2023-08-06 09:20 | Outpatient (CLI) | payer MEDICARE, OTHER, SELFPAY | PROVIDERS: PCP Family Medicine; Referring Provider Family Medicine; Visit Provider Surgery | DX: E11.621 Type 2 diabetes mellitus with foot ulcer (principal); L97.412 Non-pressure chronic ulcer of right heel and midfoot with fat layer exposed; B35.9 Dermatophytosis, unspecified; R60.0 Localized edema | CPT/HCPCS: 87070; 87075; 87077; 87147; 87186; 87205; 97602; 99203; 99214 ==

== ENCOUNTER → 2023-08-21 10:08 | Outpatient (CLI) | payer MEDICARE, OTHER, SELFPAY | LOC: WC 10:10 | PROVIDERS: PCP Family Medicine; Referring Provider Family Medicine; Visit Provider Surgery | DX: E11.621 Type 2 diabetes mellitus with foot ulcer (principal); L97.512 Non-pressure chronic ulcer of other part of right foot with fat layer exposed; B35.9 Dermatophytosis, unspecified; R60.0 Localized edema; L53.9 Erythematous condition, unspecified; E11.42 Type 2 diabetes mellitus with diabetic polyneuropathy; I48.91 Unspecified atrial fibrillation; I10 Essential (primary) hypertension; I25.10 Atherosclerotic heart disease of native coronary artery without angina pectoris | CPT/HCPCS: 99213; 99214 ==

== ENCOUNTER → 2023-08-27 13:49 | Outpatient (CLI) | payer MEDICARE, OTHER, SELFPAY ==
[2023-08-27 14:52] LABS: Add Manual Diff / Slide Review NO; Basophils Absolute Auto 0 /uL (0-100); Basophils Percent Auto 0.4 % (0-2); Eosinophils Absolute Auto 100 /uL (0-450); Eosinophils Percent Auto 1.2 % (2-4); Hematocrit 30.5 % (41-53); Hemoglobin 9.6 g/dL (13.5-17.5); Lymphocytes Absolute Auto 1700 /uL (1100-4500); Lymphocytes Percent Auto 20.2 % (25-40); Mean Corpuscular HGB Conc 31.3 % (30-36); Mean Corpuscular Hemoglobin 22.3 PG (26-34); Mean Corpuscular Volume 71.2 fL (80-100); Monocytes Absolute Auto 800 /uL (0-900); Monocytes Percent Auto 9.7 % (3-14); Neutrophils Absolute Auto 5800 /uL (1500-7000); Neutrophils Percent Auto 68.5 % (50-75); Platelet Count 338 X10^3/uL (150-400); Red Blood Cell Count 4.29 X10^6/uL (4.5-5.9); Red Cell Distribution Width 18.6 % (11.6-14.8); White Blood Cell Count 8.5 X10^3/uL (4.5-11.0)
[2023-08-27 15:23] LABS: Iron 23 ug/dL (49-181)
== END ==
PROVIDERS: PCP Family Medicine; Referring Provider Family Medicine; Visit Provider Family Medicine
DX: R53.83 Other fatigue (principal); D64.9 Anemia, unspecified
CPT/HCPCS: 36415; 83540; 85025

== ENCOUNTER 2023-08-28 14:20 | Day surgery (SDC) | payer MEDICARE, OTHER, SELFPAY ==
[2023-08-28] VITALS (7 sets, daily range): BP systolic 90–136; BP diastolic 59–77; PULSE 59–72; RESP 14–18; TEMP 36.3–36.7; O2SAT 96–100; BMI 27.0
--- NOTE | 2023-08-28 15:37 | PM.PREOP ---
Pre-operative Note Interval Note History & Physical reviewed/Exam performed by Physician: Yes Changes to H&P: No
--- NOTE | 2023-08-28 16:21 | PM.OP.EC ---
Operative Date/Time/Diagnoses Date of procedure: 08/28/23 Time of procedure: 16:21 Pre-op diagnosis: Anemia Post-op diagnosis: other (Colonic polyp x1) Procedure & Clinicians Study performed: Sigmoidoscopy. Incomplete colonoscopy Esophagoduodenoscopy Same procedure as scheduled: Yes Indications: Diagnostic endoscopy for anemia Surgeon: Zeeshan Carmona Procedure Notes Procedure in detail: The history and physical was performed/updated and the patient is ASA class is 2. The procedure was discussed in detail with the patient. Potential risks complications including infection, bleeding, missed diagnosis, perforation, need for surgery, and were explained. Their questions were answered and informed consent was obtained. Patient placed in left lateral decubitus position. Time out was performed. Procedural sedation was administered by Anesthesia. A bite block was placed. the scope was inserted into the mouth and advanced through the esophagus and into the stomach. the pylorus was intubated and the duodenum was examined to the 2nd portion.. The scope was retroflexed within the stomach. The stomach was then decompressed and scope pulled back to the GE junction. The scope was then removed Examination began with a thorough inspection of the perianal area there was no evidence of fissures, fistulae, external hemorrhoids or cutaneous malignancy. The colonoscopy scope was then placed into the anal canal and was advanced forward. We reached approximately the level of the transverse colon but due to a tortuous colon we are unable to complete of the colonoscopy. Despite multiple attempts at external compression and stiffening of the scope the complete extent could not be reached. The scope was then slowly withdrawn examining colon thoroughly in all directions, irrigating it of any residual stool. FINDINGS -no gastritis, gastric ulcer or duodenitis. -tortuous colon -sigmoid colon 8 mm polyp removed with cold snare The patient tolerated the procedure well. They will be discharged once criteria are met. The prep was of good/excellent quality. Specimen(s): other (Sigmoid colon polyp) Impression: Colonic polyp x1 Post-procedure Plan for aftercare: Barium enema Disposition: same day surgery
--- NOTE | 2023-09-02 09:46 | P.HP_ITS ---
History of Present Illness History of Present Illness Date Patient Seen: 08/28/23 Chief complaint: EGD & Colonoscopy w/poss bx's Narrative: 73-year-old male on chronic anticoagulation with new diagnosis of anemia here for diagnostic EGD and colonoscopy. No abdominal pain unintentional weight loss blood per rectum. 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) Thalassemia trait (1979) Presence of stent in right coronary artery (~2006) Beta-catrachita intolerance CAD (coronary artery disease) (2005) Atrial fibrillation (~2005) Hyperlipidemia Hypertension Hemorrhoids (2008) Chicken pox Measles Mumps Gout (1989) Sleep apnea (1987) Kidney stones (~2005) Surgical History Anesthesia S/P coronary artery stent placement (2010) S/P coronary artery stent placement (~2006) History of nasal surgery Status post right partial knee replacement (~2009) History of rectal surgery (2011) Family History Father Heart disease Hypertension Grandfather Heart disease Grandmother Stroke Mother Cancer Brother Hypertension Heart disease Stroke Sister Heart disease Breast cancer Social History marital status: number of children: 2 household members: spouse lives independently: Yes caregiver/support person: No housing: house Smoking Status: Former smoker second hand exposure: No alcohol intake: current substance use type: does not use eating out: rarely or never Type(s) of exercise: walking and swimming Meds Home Medications and Allergies Home Medications Medication Instructions Recorded Confirmed Type apixaban 5 mg tablet (Eliquis) 5 mg PO BID 07/19/18 08/28/23 History sotalol 80 mg tablet 40 mg PO BID 05/05/20 08/28/23 History simvastatin 20 mg tablet See Rx Instructions .Route 09/13/22 08/28/23 Rx .COMPLEX #90 tabs doxazosin 4 mg tablet,extended 4 mg PO DAILY #90 tabs 03/06/23 08/28/23 Rx release 24 hr glipizide 5 mg tablet See Rx Instructions .Route 07/19/23 01/09/24 Rx .COMPLEX #180 tabs lisinopril 5 mg tablet 5 mg PO DAILY #90 tabs 03/28/23 08/28/23 Rx ciprofloxacin 0.3 %-dexamethasone 4 drp otic (ear) BID #7.5 mL 06/08/23 08/28/23 Rx 0.1 % ear drops,suspension empagliflozin 25 mg tablet 25 mg PO QAM #90 tabs 06/26/23 08/28/23 Rx (Jardiance) fenofibrate nanocrystallized 145 145 mg PO ONCE PM #90 tabs 06/26/23 08/28/23 Rx mg tablet metformin 1,000 mg tablet 1,000 mg PO BID #180 tabs 06/26/23 08/28/23 Rx tadalafil 5 mg tablet 5 mg PO DAILY #90 tabs 07/17/23 08/28/23 Rx clotrimazole 1 % topical cream 1 applic topical TID #30 grams 07/31/23 08/28/23 Rx (Lotrimin AF (clotrimazole)) ferumoxytol 510 mg/17 mL (30 510 mg (17 mL) IV Q3D 2 doses 08/29/23 Rx mg/mL) intravenous solution (Feraheme) Allergies Allergy/AdvReac Type Severity Reaction Status Date / Time Penicillins [PENICILLINS] Allergy Mild rash Verified 08/28/23 14:45 Exam Vital Signs (past 8 hours): Oxygen Delivery Method Room Air Narrative Exam Narrative: General adult man alert oriented no acute distress Chest nonlabored respiration Extremities warm well perfused Assessment & Plan Assessment and plan (1) Anemia: Qualifiers: Anemia type: iron deficiency Iron deficiency anemia type: unspecified iron deficiency Qualified Code(s): D50.9 - Iron deficiency anemia, unspecified Status: Acute Assessment & Plan narrative: Diagnostic esophagoduodenoscopy and colonoscopy recommended Technical details were discussed. Risks, benefits, alternatives explained. Risks including but not limited to myocardial infarction, aspiration, bleeding, pain, missed lesion, incomplete examination, need for further radiographic studies, intestinal injury, and need for major abdominal surgery were discussed. All questions were answered to their satisfaction, and they are in agreement with this plan.
== END 2023-08-28 16:57 | disposition home or self-care (01) ==
PROVIDERS: Surgery; PCP Family Medicine; Referring Provider Surgery; Visit Provider Surgery
PROC: 0DJ08ZZ Inspection of Upper Intestinal Tract, Via Natural or Artificial Opening Endoscopic (ICD-10-PCS; CPT 43235; principal; 2023-08-28 15:30)
PROC: 0DJD8ZZ Inspection of Lower Intestinal Tract, Via Natural or Artificial Opening Endoscopic (ICD-10-PCS; CPT 45378; 2023-08-28 15:30)
DX: D64.9 Anemia, unspecified (principal); K63.5 Polyp of colon
CPT/HCPCS: 43235; 45385; 82962; J2704

== ENCOUNTER → 2023-09-24 13:12 | Outpatient (CLI) | payer MEDICARE, OTHER, SELFPAY ==
--- NOTE | 2023-09-24 13:13 | DI.RAD.S_ITS ---
PROCEDURE: FL BARIUM ENEMA INDICATIONS: incomplete colonoscopy COMPARISON: None. FINDINGS: KUB: Preprocedural vessel ordinary seaman film demonstrates a normal bowel gas pattern. No suspicious abdominal calcifications. Visualized solid organ contours appear normal in size. No suspicious bony lesions. Pacemaker leads. Colon: Barium enema with air technique. There is adequate opacification of the entire colon. No persistent stricture identified. No mass appreciated. A few colonic diverticuli. No colonic fistulae or perforations. Visualized portions of the proximal appendix are not dilated. IMPRESSION: No persistent stricture identified. No mass appreciated. Sigmoid colon diverticulosis. Dictated by: Stefan Nogueira M.D. on 10/01/2023 at 8:55 Approved by: Stefan Nogueira M.D. on 10/01/2023 at 9:03
== END ==
LOC: RAD 13:13
PROVIDERS: PCP Family Medicine; Referring Provider Surgery; Visit Provider Surgery
DX: K57.30 Diverticulosis of large intestine without perforation or abscess without bleeding (principal); D50.9 Iron deficiency anemia, unspecified
CPT/HCPCS: 74270

== ENCOUNTER → 2023-09-26 13:56 | Outpatient (CLI) | payer MEDICARE, OTHER, SELFPAY | PROVIDERS: PCP Family Medicine; Visit Provider Nurse Practitioner Family | DX: S01.309A Unspecified open wound of unspecified ear, initial encounter (principal) | CPT/HCPCS: 87070; 87075; 87205 ==

== ENCOUNTER → 2023-09-28 15:07 | Outpatient (CLI) | payer MEDICARE, OTHER, SELFPAY ==
[2023-09-28 16:34] LABS: Add Manual Diff / Slide Review NO; Basophils Absolute Auto 100 /uL (0-100); Basophils Percent Auto 0.9 % (0-2); Eosinophils Absolute Auto 200 /uL (0-450); Eosinophils Percent Auto 2.9 % (2-4); Hematocrit 31.9 % (41-53); Hemoglobin 10.2 g/dL (13.5-17.5); Lymphocytes Absolute Auto 1400 /uL (1100-4500); Lymphocytes Percent Auto 19.7 % (25-40); Mean Corpuscular HGB Conc 31.9 % (30-36); Mean Corpuscular Hemoglobin 23.3 PG (26-34); Monocytes Absolute Auto 900 /uL (0-900); Monocytes Percent Auto 11.8 % (3-14); Neutrophils Absolute Auto 4700 /uL (1500-7000); Neutrophils Percent Auto 64.7 % (50-75); Platelet Count 356 X10^3/uL (150-400); Red Blood Cell Count 4.37 X10^6/uL (4.5-5.9); Red Cell Distribution Width 21.4 % (11.6-14.8); White Blood Cell Count 7.3 X10^3/uL (4.5-11.0)
[2023-09-28 17:02] LABS: Anisocytosis 1+; Hypochromasia 1+; Microcytosis 1+; Polychromasia 1+
== END ==
PROVIDERS: PCP Family Medicine; Referring Provider Family Medicine; Visit Provider Family Medicine
DX: D50.9 Iron deficiency anemia, unspecified (principal)
CPT/HCPCS: 36415; 85025

== ENCOUNTER → 2023-12-06 09:03 | Outpatient (CLI) | payer MEDICARE, OTHER, SELFPAY ==
[2023-12-06 09:36] LABS: Add Manual Diff / Slide Review NO; Basophils Absolute Auto 100 /uL (0-100); Eosinophils Absolute Auto 100 /uL (0-450); Eosinophils Percent Auto 1.9 % (2-4); Hematocrit 30.7 % (41-53); Hemoglobin 9.9 g/dL (13.5-17.5); Lymphocytes Absolute Auto 1800 /uL (1100-4500); Lymphocytes Percent Auto 28.5 % (25-40); Mean Corpuscular HGB Conc 32.2 % (30-36); Mean Corpuscular Hemoglobin 23.7 PG (26-34); Mean Corpuscular Volume 73.7 fL (80-100); Monocytes Absolute Auto 700 /uL (0-900); Monocytes Percent Auto 10.8 % (3-14); Neutrophils Absolute Auto 3500 /uL (1500-7000); Neutrophils Percent Auto 57.8 % (50-75); Platelet Count 396 X10^3/uL (150-400); Red Blood Cell Count 4.16 X10^6/uL (4.5-5.9); Red Cell Distribution Width 18.4 % (11.6-14.8); White Blood Cell Count 6.1 X10^3/uL (4.5-11.0)
[2023-12-06 14:04] LABS: Hemoglobin A1C% w Est Avg Glu 6.6 % (4.0-6.0)
== END ==
PROVIDERS: PCP Family Medicine; Referring Provider Family Medicine; Visit Provider Family Medicine
DX: D50.9 Iron deficiency anemia, unspecified (principal); E50.9 Vitamin A deficiency, unspecified; E11.610 Type 2 diabetes mellitus with diabetic neuropathic arthropathy
CPT/HCPCS: 36415; 83036; 85025

== ENCOUNTER → 2024-03-27 10:18 | Outpatient (CLI) | payer MEDICARE, OTHER, SELFPAY ==
[2024-03-27 12:22] LABS: Alanine Aminotransferase 17 IU/L (<50); Albumin 4.1 g/dL (3.5-5.0); Albumin Globulin Ratio 1.5 (1.0-2.8); Alkaline Phosphatase 46 U/L (38-126); Aspartate Aminotransferase 25 IU/L (17-59); BUN Creatinine Ratio 29.9 (6-22); Bilirubin Total 0.4 mg/dL (0.2-1.3); Blood Urea Nitrogen 23 mg/dL (9-20); Calcium 9.3 mg/dL (8.4-10.2); Carbon Dioxide 18 mmol/L (22-32); Chloride 112 mmol/L (98-107); Cholesterol 129 mg/dL (140-199); Estimated Glomerular Filt Rate > 60 mL/min (>60); Globulin 2.8 g/dL (1.7-4.1); Glucose 145 mg/dL (80-110); HDL Cholesterol 32 mg/dL (40-60); HEMOLYSIS < 15 (0-50); LDL Cholesterol Calculated 50 mg/dL (<100); Potassium 4.7 mmol/L (3.4-5.1); Sodium 139 mmol/L (137-145); Total Protein 6.9 g/dL (6.3-8.2); Triglycerides 237 mg/dL (35-150)
[2024-03-27 12:27] LABS: Add Manual Diff / Slide Review NO; Basophils Absolute Auto 0 /uL (0-100); Basophils Percent Auto 0.6 % (0-2); Eosinophils Absolute Auto 100 /uL (0-450); Eosinophils Percent Auto 1.2 % (2-4); Hematocrit 32.4 % (41-53); Hemoglobin 10.8 g/dL (13.5-17.5); Lymphocytes Absolute Auto 600 /uL (1100-4500); Lymphocytes Percent Auto 9.8 % (25-40); Mean Corpuscular HGB Conc 33.3 % (30-36); Mean Corpuscular Volume 87.1 fL (80-100); Monocytes Absolute Auto 600 /uL (0-900); Monocytes Percent Auto 10.2 % (3-14); Neutrophils Absolute Auto 4500 /uL (1500-7000); Neutrophils Percent Auto 78.2 % (50-75); Platelet Count 139 X10^3/uL (150-400); Red Blood Cell Count 3.72 X10^6/uL (4.5-5.9); Red Cell Distribution Width 19.9 % (11.6-14.8); White Blood Cell Count 5.8 X10^3/uL (4.5-11.0)
[2024-03-27 12:41] LABS: Hemoglobin A1C% w Est Avg Glu 6.2 % (4.0-6.0)
== END ==
PROVIDERS: PCP Family Medicine; Referring Provider Family Medicine; Visit Provider Family Medicine
DX: E78.5 Hyperlipidemia, unspecified (principal); E11.610 Type 2 diabetes mellitus with diabetic neuropathic arthropathy; D50.9 Iron deficiency anemia, unspecified; Z79.899 Other long term (current) drug therapy; I25.10 Atherosclerotic heart disease of native coronary artery without angina pectoris
CPT/HCPCS: 36415; 80053; 80061; 83036; 85025

== ENCOUNTER 2024-05-20 10:17 | Emergency (ER) | payer MEDICARE, OTHER, SELFPAY ==
[2024-05-20 10:29] VITALS: BP 115/56; PULSE 76; RESP 15; TEMP 36.9; O2SAT 99; BMI 27.3
--- NOTE | 2024-05-20 11:23 | ED_ITS ---
HPI - Extremity Problem <Cindy Bonilla PA-C - Last Filed: 05/20/24 13:11> General Chief complaint: Extremity Problem,Nontraumatic Stated complaint: Sent from [facility] for IV for leg Infection Time Seen by Provider: 05/20/24 11:23 Source: patient Mode of arrival: Ambulatory History of Present Illness HPI Narrative: 74-year-old male with a history of coronary artery disease diabetes type 2, stent x2, pacemaker due to bradycardia, non-Hodgkin's lymphoma currently under chemotherapy last infusion was March 28, 2024, peripheral neuropathy is referred from our walk-in clinic today for right lower leg redness and swelling. He has had cellulitis in the past he states his symptoms actually began 1 month ago and was treated with oral Keflex for 1 week and it did improve. He states the swelling is there ?all the time?. He is denying any fever but he endorses some chills yesterday, his last dose of Tylenol was yesterday. He is denying any nausea, calf pain, injury, any other dermatologic issues. He states his A1c is less than 7, he currently on Eliquis, sotalol, glipizide, metformin, lisinopril. He is denying any knee pain, itching, injury to the foot toes, he does state he tried to trim his 5th toenail and it ?came out?. All other systems are reviewed and are negative. Related Data Home Medications Medication Instructions Recorded Confirmed apixaban 5 mg tablet (Eliquis) 5 mg PO BID 07/19/18 03/31/24 sotalol 80 mg tablet 40 mg PO BID 05/05/20 03/31/24 prednisolone 5 mg tablet 5 mg PO DAILY 12/25/23 03/31/24 allopurinol 300 mg tablet 300 mg PO DAILY 05/20/24 05/20/24 ergocalciferol (vitamin D2) 1,250 1,250 mcg PO 05/20/24 05/20/24 mcg (50,000 unit) capsule Previous Rx's Medication Instructions Recorded glipizide 5 mg tablet See Rx Instructions .Route 03/07/23 .COMPLEX #180 tabs ciprofloxacin 0.3 %-dexamethasone 4 drp otic (ear) BID #7.5 mL 06/08/23 0.1 % ear drops,suspension tadalafil 5 mg tablet 5 mg PO DAILY #90 tabs 07/17/23 clotrimazole 1 % topical cream 1 applic topical TID #30 grams 07/31/23 (Lotrimin AF (clotrimazole)) ferumoxytol 510 mg/17 mL (30 510 mg (17 mL) IV Q3D 2 doses 08/29/23 mg/mL) intravenous solution (Feraheme) clotrimazole 1 % topical cream 1 applic topical TID #30 grams 09/26/23 (Antifungal (clotrimazole)) fenofibrate nanocrystallized 145 145 mg PO QPM #90 tabs 10/24/23 mg tablet triamcinolone acetonide 0.5 % 1 applic topical BID #15 grams 12/25/23 topical cream empagliflozin 25 mg tablet 25 mg PO QAM #90 tabs 01/07/24 (Jardiance) simvastatin 20 mg tablet 20 mg PO ONCE PM #90 tabs 02/12/24 doxazosin 4 mg tablet,extended 4 mg PO DAILY #90 tabs 03/19/24 release 24 hr metformin 1,000 mg tablet 1,000 mg PO BID #180 tabs 04/14/24 lisinopril 5 mg tablet 5 mg PO DAILY #90 tabs 05/16/24 doxycycline hyclate 100 mg capsule 100 mg PO BID #20 caps 05/20/24 Allergies Allergy/AdvReac Type Severity Reaction Status Date / Time Penicillins [PENICILLINS] Allergy Mild rash Verified 05/20/24 10:29 Review of Systems <Cindy Bonilla PA-C - Last Filed: 05/20/24 13:11> Review of Systems Narrative: All other systems are reviewed and are negative. 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) Thalassemia trait (1979) Presence of stent in right coronary artery (~2006) Beta-catrachita intolerance CAD (coronary artery disease) (2005) Atrial fibrillation (~2005) Hyperlipidemia Hypertension Hemorrhoids (2008) Chicken pox Measles Mumps Gout (1989) Sleep apnea (1987) Kidney stones (~2005) Surgical History Anesthesia S/P coronary artery stent placement (2010) S/P coronary artery stent placement (~2006) History of nasal surgery Status post right partial knee replacement (~2009) History of rectal surgery (2011) Family History Father Heart disease Hypertension Grandfather Heart disease Grandmother Stroke Mother Cancer Brother Hypertension Heart disease Stroke Sister Heart disease Breast cancer Social History marital status: number of children: 2 household members: spouse lives independently: Yes caregiver/support person: No housing: house Smoking Status: Former smoker second hand exposure: No alcohol intake: current substance use type: does not use eating out: rarely or never Type(s) of exercise: walking and swimming Smoking Status: Former smoker alcohol intake frequency: holidays/special occasions only Substance Use Type: does not use Exam <Cindy Bonilla PA-C - Last Filed: 05/20/24 13:11> Initial Vital Signs Initial Vital Signs: Vital Signs Temperature 98.4 F 05/20/24 10:29 Pulse Rate 76 05/20/24 10:29 Respiratory Rate 15 05/20/24 10:29 Blood Pressure 115/56 L 05/20/24 10:29 Pulse Oximetry 99 05/20/24 10:29 Oxygen Delivery Method Room Air 05/20/24 10:29 Reviewed and are normal. Const Other: Smiling, ambulatory, no distress. Resp Effort & Inspection: normal respiratory effort Auscultation: clear to auscultation bilaterally Cardio Rate: regular rate Rhythm: regular rhythm Skin Other: Right lower extremity the areas marked with a pen, he has some mild redness on the anterior silver involving 2/3 of the lower extremity, it is not circumferential, there is no redness on the calf, there is no pitting edema although it is swollen, there are no lesions or breaks in the skin, it is warm not hot to the touch. The ankle has some swelling as well again no pitting some redness on the dorsal toes involving the 2nd through 4th, the nails are intact, there was some dried blood on the 5th nail but it is intact there is no drainage, no fluctuance, skin flaking noted on the plantar aspect of his right foot, no other lesions identified. No lymphangitis. Extrem Right lower extremity: normal capillary refill, edema, lower leg Details: erythema, localized swelling, non-pitting edema and warmth; no abrasions, no lacerations, no ecchymosis, no penetrating wound and no deformity and ankle Details: swelling, normal ROM and warmth; no ecchymosis, no penetrating wound and achilles tendon exam normal; no cyanosis Other: DP pulse present unable to appreciate PT pulse, there is no pitting, he has full range of motion to his distal phalanges, sensory is diminished due to his underlying peripheral neuropathy. No lesions identified. <Blair Gonzales DO - Last Filed: 05/20/24 14:09> Initial Vital Signs Initial Vital Signs: Vital Signs Temperature 98.4 F 05/20/24 10:29 Pulse Rate 76 05/20/24 10:29 Respiratory Rate 15 05/20/24 10:29 Blood Pressure 115/56 L 05/20/24 10:29 Pulse Oximetry 99 05/20/24 10:29 Oxygen Delivery Method Room Air 05/20/24 10:29 Scores <Cindy Bonilla PA-C - Last Filed: 05/20/24 13:11> Wells' Criteria for PE Citation:: Wells score is moderate probability, score of 1, however he is currently on Eliquis. No history of DVT, he has active cancer treatment for his non- Hodgkin's lymphoma recent chemotherapy in March, alternative diagnosis likely more than deep vein thrombosis. Course <Cindy Bonilla PA-C - Last Filed: 05/20/24 13:11> Course Course Narrative: He tolerated the IV ceftriaxone 2 g, he is resting comfortably. He will be discharged on oral doxycycline to cover for MRSA, he will follow up with his PCP and oncologist. Orders Ordered: ED Orders 05/20/24 11:30 CBC Auto Diff [Complete Blood Count AUTO DIFF] Stat CMP [Comprehensive Metabolic Panel] Stat Procalcitonin Stat Prothrombin Time INR Stat Discontinued Medications Ceftriaxone Sodium 2,000 mg/ (Sodium Chloride) 100 mls @ 200 mls/hr IV NOW ONE Stop: 05/20/24 12:02 Last Infusion: 05/20/24 13:05 Dose: Infused Documented By: Admin: 05/20/24 12:28 Dose: 200 mls/hr Documented By: RB Reevaluation(s) Reevaluation #1: Exam remains unchanged, no worsening redness, no complaints of pain or any new issues. Vital Signs Vital signs: Vital Signs - 8 hr 05/20/24 10:29 05/20/24 11:39 05/20/24 13:26 Temperature 98.4 F Pulse Rate 76 60 Pulse Rate [Right Dorsalis Pedis] 78 Respiratory Rate 15 18 Blood Pressure 115/56 L 106/59 L Pulse Oximetry 99 100 Oxygen Delivery Method Room Air Room Air <Blair Gonzales DO - Last Filed: 05/20/24 14:09> Orders Ordered: ED Orders 05/20/24 11:30 CBC Auto Diff [Complete Blood Count AUTO DIFF] Stat CMP [Comprehensive Metabolic Panel] Stat Procalcitonin Stat Prothrombin Time INR Stat Discontinued Medications Ceftriaxone Sodium 2,000 mg/ (Sodium Chloride) 100 mls @ 200 mls/hr IV NOW ONE Stop: 05/20/24 12:02 Last Infusion: 05/20/24 13:05 Dose: Infused Documented By: Admin: 05/20/24 12:28 Dose: 200 mls/hr Documented By: RB Vital Signs Vital signs: Vital Signs - 8 hr 05/20/24 10:29 05/20/24 11:39 05/20/24 13:26 Temperature 98.4 F Pulse Rate 76 60 Pulse Rate [Right Dorsalis Pedis] 78 Respiratory Rate 15 18 Blood Pressure 115/56 L 106/59 L Pulse Oximetry 99 100 Oxygen Delivery Method Room Air Room Air MDM - Extremity (Nontraumatic) <Cindy Bonilla PA-C - Last Filed: 05/20/24 13:11> Lab Data Lab results narrative: CBC is normal except for platelets of [id number], this is likely secondary to his chemotherapy last month, procalcitonin was normal at 0.201. 05/20/24 11:30 05/20/24 11:30 Labs: Lab Results 05/20/24 Range/Units 11:30 WBC 6.0 (4.5-11.0) X10^3/uL RBC 4.04 L (4.5-5.9) X10^6/uL Hgb 11.7 L (13.5-17.5) g/dL Hct 35.0 L (41-53) % MCV 86.6 (80-100) fL MCH 29.0 (26-34) PG MCHC 33.5 (30-36) % RDW 17.4 H (11.6-14.8) % Plt Count 102 L (150-400) X10^3/uL Neut % (Auto) 72.7 (50-75) % Lymph % (Auto) 15.7 L (25-40) % [place] % (Auto) 8.8 (3-14) % Eos % (Auto) 2.5 (2-4) % Baso % (Auto) 0.3 (0-2) % Neut # (Auto) 4400 (6046-0709) /uL Lymph # (Auto) 900 L (0454-7251) /uL [place] # (Auto) 500 (0-900) /uL Eos # (Auto) 200 (0-450) /uL Baso # (Auto) 0 (0-100) /uL PT 16.6 H (9.4-12.5) SECONDS INR 1.4 H (0.9-1.3) Sodium 135 L (137-145) mmol/L Potassium 4.6 (3.4-5.1) mmol/L Chloride 106 (98-107) mmol/L Carbon Dioxide 18 L (22-32) mmol/L BUN 34 H (9-20) mg/dL Creatinine 0.92 (0.66-1.25) mg/dL Estimated GFR > 60 (>60) mL/min BUN/Creatinine Ratio 37.0 H (6-22) Glucose 165 H (80-110) mg/dL Calcium 9.8 (8.4-10.2) mg/dL Total Bilirubin 0.6 (0.2-1.3) mg/dL AST 27 (17-59) IU/L ALT 24 (<50) IU/L Alkaline Phosphatase 34 L (38-126) U/L Total Protein 7.4 (6.3-8.2) g/dL Albumin 4.3 (3.5-5.0) g/dL Globulin 3.1 (1.7-4.1) g/dL Albumin/Globulin Ratio 1.4 (1.0-2.8) Procalcitonin 0.201 (<0.5) ng/mL MDM Narrative Medical decision making narrative: Cellulitis in the right lower leg it is not circumferential, he is afebrile, he has a normal CBC white count of 6.0, platelets incidentally low at 102 down from 139 in March status post chemotherapy. Treated with 1 dose of ceftriaxone 2 g IV, I believe he can be managed as an outpatient with close follow-up. I have prescribed doxycycline 100 mg b.i.d. for 10 day course. This will cover him for MRSA as well. There are no wounds, he is comfortable, he lives with his who will assist in monitoring the area. The pen markings are left in place, if he has any spread of the redness beyond these markings to come back to the emergency department immediately or call 911. Try to keep elevated, you may use a warm compress, watch for any changes in swelling, fever or chills. You may take Tylenol for pain. Regarding his platelet count, I have asked him to follow up with his PCP and his oncologist. Currently on Eliquis, he has no calf pain or swelling, low index of suspicion for DVT. <Blair Gonzales, - Last Filed: 05/20/24 14:09> Lab Data Labs: Lab Results 05/20/24 Range/Units 11:30 WBC 6.0 (4.5-11.0) X10^3/uL RBC 4.04 L (4.5-5.9) X10^6/uL Hgb 11.7 L (13.5-17.5) g/dL Hct 35.0 L (41-53) % MCV 86.6 (80-100) fL MCH 29.0 (26-34) PG MCHC 33.5 (30-36) % RDW 17.4 H (11.6-14.8) % Plt Count 102 L (150-400) X10^3/uL Neut % (Auto) 72.7 (50-75) % Lymph % (Auto) 15.7 L (25-40) % [place] % (Auto) 8.8 (3-14) % Eos % (Auto) 2.5 (2-4) % Baso % (Auto) 0.3 (0-2) % Neut # (Auto) 4400 (4859-8264) /uL Lymph # (Auto) 900 L (3544-9284) /uL [place] # (Auto) 500 (0-900) /uL Eos # (Auto) 200 (0-450) /uL Baso # (Auto) 0 (0-100) /uL PT 16.6 H (9.4-12.5) SECONDS INR 1.4 H (0.9-1.3) Sodium 135 L (137-145) mmol/L Potassium 4.6 (3.4-5.1) mmol/L Chloride 106 (98-107) mmol/L Carbon Dioxide 18 L (22-32) mmol/L BUN 34 H (9-20) mg/dL Creatinine 0.92 (0.66-1.25) mg/dL Estimated GFR > 60 (>60) mL/min BUN/Creatinine Ratio 37.0 H (6-22) Glucose 165 H (80-110) mg/dL Calcium 9.8 (8.4-10.2) mg/dL Total Bilirubin 0.6 (0.2-1.3) mg/dL AST 27 (17-59) IU/L ALT 24 (<50) IU/L Alkaline Phosphatase 34 L (38-126) U/L Total Protein 7.4 (6.3-8.2) g/dL Albumin 4.3 (3.5-5.0) g/dL Globulin 3.1 (1.7-4.1) g/dL Albumin/Globulin Ratio 1.4 (1.0-2.8) Procalcitonin 0.201 (<0.5) ng/mL MDM Narrative Medical decision making narrative: Cellulitis in the right lower leg it is not circumferential, he is afebrile, he has a normal CBC white count of 6.0, platelets incidentally low at 102 down from 139 in March status post chemotherapy. Treated with 1 dose of ceftriaxone 2 g IV, I believe he can be managed as an outpatient with close follow-up. I have prescribed doxycycline 100 mg b.i.d. for 10 day course. This will cover him for MRSA as well. There are no wounds, he is comfortable, he lives with his who will assist in monitoring the area. The pen markings are left in place, if he has any spread of the redness beyond these markings to come back to the emergency department immediately or call 911. Try to keep elevated, you may use a warm compress, watch for any changes in swelling, fever or chills. You may take Tylenol for pain. Regarding his platelet count, I have asked him to follow up with his PCP and his oncologist. Currently on Eliquis, he has no calf pain or swelling, low index of suspicion for DVT. Dr. Gonzales: I was immediately available in the department for consultation. Documentation has been reviewed. I agree with assessment and plan. Discharge Plan Departure Patient Disposition: Home Clinical Impression: Cellulitis and abscess of leg, Thrombocytopenia Instructions: DI for Cellulitis -- Adult Activity Restrictions/Additional Instructions: You had lab work performed today, you received intravenous antibiotic ceftriaxone 2 g, I have prescribed an oral antibiotic, I would like you to follow up with your PCP, keep your leg elevated as much as possible, you may use a warm compress, monitor the pen markings and if the redness travels beyond these borders please return to the emergency department immediately. You may take Tylenol for pain. Your blood work showed lower platelets than normal compared to your last blood work in March, this is likely related to your chemotherapy but I would like you to contact her PCP and follow-up or your oncologist. Red flag warning signs include increased pain, swelling, fever, skin becomes hot, increased redness or any other worrisome symptoms to please return to the local emergency department. Prescriptions: New doxycycline hyclate 100 mg capsule 100 mg PO BID Qty: 20 0RF No Action sotalol 80 mg tablet 40 mg PO BID clotrimazole [Lotrimin AF (clotrimazole)] 1 % cream 1 applic topical TID Qty: 30 2RF clotrimazole [Antifungal (clotrimazole)] 1 % cream 1 applic topical TID Qty: 30 0RF allopurinol 300 mg tablet 300 mg PO DAILY ergocalciferol (vitamin D2) 1,250 mcg (50,000 unit) capsule 1,250 mcg PO prednisolone 5 mg tablet 5 mg PO DAILY triamcinolone acetonide 0.5 % cream 1 applic topical BID Qty: 15 2RF glipizide 5 mg tablet See Rx Instructions .ROUTE .COMPLEX Qty: 180 3RF Dose Instruction: Take one tablet by mouth twice daily before meals Rx Instructions: Take one tablet by mouth twice daily before meals ciprofloxacin-dexamethasone 0.3-0.1 % drops,suspension 4 drp otic (ear) BID Qty: 7.5 2RF tadalafil 5 mg tablet 5 mg PO DAILY Qty: 90 0RF ferumoxytol [Feraheme] 510 mg/17 mL (30 mg/mL) solution 510 mg IV Q3D Rx Instructions: administer at a rate of up to 1 mL /sec (30 mg /sec ), give over 30 minutes every 3-8 days times 2 doses fenofibrate nanocrystallized 145 mg tablet 145 mg PO QPM Qty: 90 2RF Jardiance 25 mg tablet 25 mg PO QAM Qty: 90 0RF simvastatin 20 mg tablet 20 mg PO ONCE PM Qty: 90 0RF doxazosin 4 mg tablet extended release 24hr 4 mg PO DAILY Qty: 90 2RF Rx Instructions: must administer with breakfast metformin 1,000 mg tablet 1,000 mg PO BID Qty: 180 0RF lisinopril 5 mg tablet 5 mg PO DAILY Qty: 90 1RF apixaban [Eliquis] 5 mg tablet 5 mg PO BID Referrals: Flor Klein MD [Primary Care Provider] - Stand Alone Forms: Patient Portal/API
[2024-05-20 11:39] VITALS: PULSE 78
[2024-05-20 11:47] LABS: Add Manual Diff / Slide Review NO; Basophils Absolute Auto 0 /uL (0-100); Basophils Percent Auto 0.3 % (0-2); Eosinophils Absolute Auto 200 /uL (0-450); Eosinophils Percent Auto 2.5 % (2-4); Hemoglobin 11.7 g/dL (13.5-17.5); Lymphocytes Absolute Auto 900 /uL (1100-4500); Lymphocytes Percent Auto 15.7 % (25-40); Mean Corpuscular HGB Conc 33.5 % (30-36); Mean Corpuscular Volume 86.6 fL (80-100); Monocytes Absolute Auto 500 /uL (0-900); Monocytes Percent Auto 8.8 % (3-14); Neutrophils Absolute Auto 4400 /uL (1500-7000); Neutrophils Percent Auto 72.7 % (50-75); Platelet Count 102 X10^3/uL (150-400); Red Blood Cell Count 4.04 X10^6/uL (4.5-5.9); Red Cell Distribution Width 17.4 % (11.6-14.8)
[2024-05-20 11:51] LABS: INR 1.4 (0.9-1.3); Prothrombin Time 16.6 SECONDS (9.4-12.5)
[2024-05-20 11:56] LABS: Alanine Aminotransferase 24 IU/L (<50); Albumin 4.3 g/dL (3.5-5.0); Albumin Globulin Ratio 1.4 (1.0-2.8); Alkaline Phosphatase 34 U/L (38-126); Aspartate Aminotransferase 27 IU/L (17-59); Bilirubin Total 0.6 mg/dL (0.2-1.3); Blood Urea Nitrogen 34 mg/dL (9-20); Calcium 9.8 mg/dL (8.4-10.2); Carbon Dioxide 18 mmol/L (22-32); Chloride 106 mmol/L (98-107); Estimated Glomerular Filt Rate > 60 mL/min (>60); Globulin 3.1 g/dL (1.7-4.1); Glucose 165 mg/dL (80-110); HEMOLYSIS < 15 (0-50); Potassium 4.6 mmol/L (3.4-5.1); Sodium 135 mmol/L (137-145); Total Protein 7.4 g/dL (6.3-8.2)
[2024-05-20 12:12] LABS: Procalcitonin 0.201 ng/mL (<0.5)
[2024-05-20] MEDS: cefTRIAXone 2,000 MG in SODIUM CHLORIDE 0.9% 100 ML 200 MG IV (12:28)
[2024-05-20 13:26] VITALS: BP 106/59; PULSE 60; RESP 18; O2SAT 100
== END 2024-05-20 13:24 | disposition home or self-care (01) ==
PROVIDERS: Emergency Provider Physician Assistant Medical; PCP Family Medicine
DX: L03.115 Cellulitis of right lower limb (principal); D69.6 Thrombocytopenia, unspecified; Z79.01 Long term (current) use of anticoagulants; I25.10 Atherosclerotic heart disease of native coronary artery without angina pectoris; E11.9 Type 2 diabetes mellitus without complications; Z95.5 Presence of coronary angioplasty implant and graft; Z95.0 Presence of cardiac pacemaker; C85.90 Non-Hodgkin lymphoma, unspecified, unspecified site
CPT/HCPCS: 36415; 80053; 84145; 85025; 85610; 96365; 99284; J0696